=== PATIENT | male | born 1955 | race Caucasian/White ===

== ENCOUNTER → 2017-04-26 08:32 | Outpatient (CLI) | payer OTHER, SELFPAY ==
[2017-04-26 10:56] LABS: AST(SGOT) 21 U/L (15-37); Alanine Aminotransfer ALT/SGPT 35 U/L (12-78); Albumin, Serum 3.9 g/dL (3.4-5.0); Alkaline Phosphatase 102 U/L (45-117); Bilirubin, Direct 0.22 mg/dL (0.00-0.30); Cholesterol 132 mg/dL (200); Globulin 3.1 g/dL (2.2-4.2); High Density Lipoprotein 52 mg/dL; Triglycerides 64 mg/dL; Very Low Density Lipoprotein 13 mg/dL (5-40)
== END ==
PROVIDERS: Family Provider Family Medicine; PCP Family Medicine; Visit Provider Internal Medicine Cardiovascular Disease
DX: E78.5 Hyperlipidemia, unspecified (principal)
CPT/HCPCS: 36415; 80061; 80076

== ENCOUNTER → 2018-03-28 09:00 | Outpatient (CLI) | payer OTHER, SELFPAY ==
[2018-02-03 16:29] VITALS: BMI 24.7
[2018-03-28 12:26] LABS: AST(SGOT) 24 U/L (15-37); Alanine Aminotransfer ALT/SGPT 52 U/L (16-61); Albumin, Serum 3.8 g/dL (3.2-5.0); Alkaline Phosphatase 84 U/L (45-117); Bilirubin, Direct 0.11 mg/dL (0.00-0.30); Cholesterol 156 mg/dL (200); Globulin 2.9 g/dL (2.2-4.2); High Density Lipoprotein 47 mg/dL; Protein, Total 6.7 g/dL (6.4-8.2); Triglycerides 93 mg/dL; Very Low Density Lipoprotein 19 mg/dL (5-40)
== END ==
PROVIDERS: Family Provider Family Medicine; PCP Family Medicine; Visit Provider Internal Medicine Cardiovascular Disease
DX: E78.5 Hyperlipidemia, unspecified (principal)
CPT/HCPCS: 36415; 80061; 80076

== ENCOUNTER → 2018-12-22 | Outpatient (CLI) | payer OTHER, SELFPAY ==
[2018-08-04 15:53] VITALS: BMI 25.7
[2018-12-22 12:49] LABS: AST(SGOT) 18 U/L (15-37); Alanine Aminotransfer ALT/SGPT 37 U/L (16-61); Albumin, Serum 3.6 g/dL (3.2-5.0); Alkaline Phosphatase 88 U/L (45-117); Bilirubin, Direct 0.13 mg/dL (0.00-0.30); Cholesterol 146 mg/dL (200); Globulin 3.1 g/dL (2.2-4.2); High Density Lipoprotein 48 mg/dL; Protein, Total 6.7 g/dL (6.4-8.2); Triglycerides 139 mg/dL; Very Low Density Lipoprotein 28 mg/dL (5-40)
== END | disposition home or self-care (01) ==
LOC: BFHLAB 08:36
PROVIDERS: Family Provider Family Medicine; PCP Family Medicine; Visit Provider Physician Assistant Medical
DX: E78.5 Hyperlipidemia, unspecified (principal); I10 Essential (primary) hypertension; I25.10 Atherosclerotic heart disease of native coronary artery without angina pectoris
CPT/HCPCS: 36415; 80061; 80076

== ENCOUNTER → 2019-08-05 | Outpatient (CLI) | payer OTHER, SELFPAY ==
[2019-02-09 15:47] VITALS: BMI 25.9
[2019-08-05 08:05] LABS: AST(SGOT) 26 U/L (15-37); Alanine Aminotransfer ALT/SGPT 50 U/L (16-61); Albumin, Serum 3.9 g/dL (3.2-5.0); Alkaline Phosphatase 85 U/L (45-117); Bilirubin, Direct 0.17 mg/dL (0.00-0.30); Cholesterol 151 mg/dL (200); Globulin 3.1 g/dL (2.2-4.2); High Density Lipoprotein 47 mg/dL; Triglycerides 120 mg/dL; Very Low Density Lipoprotein 24 mg/dL (5-40)
[2019-08-05 08:10] LABS: T4 Free Direct 0.81 ng/dL (0.76-1.46); Thyroid Stim Hormone (TSH) 2.72 uIU/mL (0.358-3.74)
== END | disposition home or self-care (01) ==
LOC: LAB 07:04
PROVIDERS: Physician Assistant Medical; PCP Family Medicine; Referring Provider Nurse Practitioner Family; Visit Provider Nurse Practitioner Family
DX: E78.5 Hyperlipidemia, unspecified (principal)
CPT/HCPCS: 36415; 80061; 80076; 84439; 84443

== ENCOUNTER → 2021-01-30 06:03 | Outpatient (CLI) | payer OTHER, SELFPAY ==
[2021-01-30 09:37] LABS: AST(SGOT) 21 U/L (15-37); Alanine Aminotransfer ALT/SGPT 43 U/L (16-61); Albumin, Serum 3.6 g/dL (3.2-5.0); Alkaline Phosphatase 85 U/L (45-117); Bilirubin, Direct 0.14 mg/dL (0.00-0.30); Cholesterol 143 mg/dL (200); Globulin 3.3 g/dL (2.2-4.2); High Density Lipoprotein 45 mg/dL; Protein, Total 6.9 g/dL (6.4-8.2); Triglycerides 129 mg/dL; Very Low Density Lipoprotein 26 mg/dL (5-40)
== END ==
PROVIDERS: PCP Family Medicine; Referring Provider Physician Assistant Medical; Visit Provider Physician Assistant Medical
DX: E78.5 Hyperlipidemia, unspecified (principal); I25.10 Atherosclerotic heart disease of native coronary artery without angina pectoris
CPT/HCPCS: 36415; 80061; 80076

== ENCOUNTER → 2021-03-16 | Outpatient (CLI) | payer OTHER, SELFPAY | END | disposition home or self-care (01) | PROVIDERS: PCP Family Medicine; Visit Provider Family Medicine | DX: Z20.828 Contact with and (suspected) exposure to other viral communicable diseases (principal) | CPT/HCPCS: 87633; 87635; U0005; U0003 ==

== ENCOUNTER → 2022-04-10 | Outpatient (CLI) | payer MEDICARE, SELFPAY ==
--- NOTE | 2022-04-10 07:24 | ECHOD_ITS ---
Reason For Study: CAD/ASHD Procedure This was a 2D Doppler, Color Flow transthoracic echocardiogram. The study was technically difficult. Exam performed in department. Left Ventricle Normal LV size. Left ventricular systolic function is normal. The estimated ejection fraction is 60 %. Post operative septal motion. No evidence for diastolic dysfunction. Right Ventricle Normal RV size. Normal systolic function. Atria Normal left atrium. Normal right atrium. No doppler evidence for ASD. Mitral Valve There is no mitral annular calcification. Normal mitral valve. Trivial mitral valve insufficiency. Tricuspid Valve Normal tricuspid valve. Trivial tricuspid valve insufficiency. Unable to estimate RV systolic pressure due to insufficient tricuspid regurgitant envelope. Aortic Valve Trisinus/trileaflet aortic valve. Mild focal aortic valve calcification. Pulmonic Valve The pulmonic valve is not well visualized. Mild (1+) pulmonic valve insufficiency. Great Vessels Normal sized aortic root. Pericardium/Pleural No pericardial effusion. MMode/2D Measurements & Calculations LVIDd: 5.0 cm IVSd: 0.99 cm Ao root diam: 3.0 cm LVIDs: 3.6 cm LVPWd: 1.2 cm RVDd: 3.1 cm FS: 27.7 % LAV(MOD-bp): 43.1 ml LVAd ap4: 30.3 cm2 LVAd ap2: 26.1 cm2 LAV(MOD-bp) Indexed: 18.9 ml/m2 LVLd ap4: 7.8 cm LVLd ap2: 8.2 cm LAV(MOD-sp2): 44.4 ml EDV(MOD-sp4): 96.1 ml EDV(MOD-sp2): 71.2 ml LAV(MOD-sp4): 38.1 ml EDV(sp4-el): 99.2 ml EDV(sp2-el): 70.9 ml LVAs ap4: 19.9 cm2 LVAs ap2: 14.8 cm2 LVLs ap4: 7.0 cm LVLs ap2: 6.4 cm ESV(MOD-sp4): 47.3 ml ESV(MOD-sp2): 30.6 ml ESV(sp4-el): 48.3 ml ESV(sp2-el): 28.9 ml EF(MOD-sp4): 50.8 % EF(MOD-sp2): 57.0 % EF(sp4-el): 51.3 % SV(MOD-sp4): 48.8 ml SV(MOD-sp2): 40.6 ml SV(sp4-el): 50.9 ml LA dimension(2D): 4.1 cm LA A4 area: 14.5 cm2 RA A4 area: 10.8 cm2 Time Measurements MV dec time: 0.23 sec Doppler Measurements & Calculations MV E max saurabh: 55.7 cm/sec Lat Peak E' Saurabh: 11.0 cm/sec Med Peak E' Saurabh: 9.4 cm/sec MV A max saurabh: 60.1 cm/sec E/E' lat: 5.1 E/E' med: 6.0 MV E/A: 0.93 MV dec slope: 253.9 cm/sec2 Ao V2 max: 149.0 cm/sec LV V1 max: 105.3 cm/sec Ao max P.9 mmHg LV V1 max P.4 mmHg Ao V2 mean: 101.1 cm/sec LV V1 mean P.4 mmHg Ao mean P.7 mmHg LV V1 mean: 71.7 cm/sec Ao V2 VTI: 29.6 cm LV V1 VTI: 20.8 cm AV (velocity ratio): 0.70 PA V2 max: 87.6 cm/sec PI end-d saurabh: 91.3 cm/sec ECHO/Echo Complete Interpretation Summary The study was technically difficult. Left ventricular systolic function is normal. The estimated ejection fraction is 60 %. Post operative septal motion. Trivial mitral valve insufficiency. Trivial tricuspid valve insufficiency. Mild focal aortic valve calcification. Mild (1+) pulmonic valve insufficiency. Unable to estimate RV systolic pressure due to insufficient tricuspid regurgita nt envelope. No evidence for diastolic dysfunction. Ordering Physician: Eagle Arellano Referring Physician: Nhan Yang Performed By: Meche Benitez, RDCS, RVT
--- NOTE | 2022-04-10 07:24 | CDU_ITS ---
Reason For Study: Bruit Rt. Velocities/BP Lt. Velocities/BP Prox CCA 96.0/20.1 cm/sec. Prox CCA 112.5/30.3 cm/sec. Mid CCA 86.4/22.6 cm/sec. Mid CCA 90.6/26.7 cm/sec. Dist CCA 71.0/17.1 cm/sec. Dist CCA 88.6/27.0 cm/sec. Prox ICA 90.8/25.9 cm/sec. Prox ICA 89.5/28.9 cm/sec. Mid ICA 118.0/28.5 cm/sec. Mid ICA 72.0/22.6 cm/sec. Dist ICA 79.8/29.2 cm/sec. Dist ICA 69.8/27.0 cm/sec. Rt. ICA/CCA = 1.4. Lt. ICA/CCA = 1.0. Prox ECA 166.0/18.9 cm/sec. Prox ECA 105.0/24.2 cm/sec. Rt. Vert. 30.0/10.4 cm/sec. Lt. Vert. 44.1/11.9 cm/sec. Right Extracranial There is intimal thickening but no significant atherosclerotic plaque noted in the right common carotid artery. There is heterogeneous, irregular atherosclerotic plaque noted in the right internal carotid artery. There is heterogeneous, irregular atherosclerotic plaque noted in the right external carotid artery. Antegrade flow is noted in the right vertebral artery. Left Extracranial There is intimal thickening but no significant atherosclerotic plaque noted in the left common carotid artery. There is heterogeneous, irregular atherosclerotic plaque noted in the left internal carotid artery. There is heterogeneous, irregular atherosclerotic plaque noted in the left external carotid artery. Antegrade flow is noted in the left vertebral artery. Procedure Carotid Duplex 29792. This is a Carotid Duplex examination using B-mode, color flow and specral Doppler. The exam was diagnostic. Exam performed in department. VL/Carotid Duplex Ultrasound Interpretation Summary Mild (<50%) stenosis right extracranial internal carotid. Mild (<50%) stenosis left extracranial internal carotid. Patent and antegrade vertebrals bilaterally. Ordering Physician: Eagle Arellano Referring Physician: Nhan Yang Performed By: Matthew Gandhi RVT
--- NOTE | 2022-04-10 08:56 | STRESSREP_ITS ---
Stress Test Report Date: 04-10-2022 Procedure: Exercise tolerance test/imaging study Indications: Shortness of breath/dyspnea; CAD; CABG Consent: Per the patient Procedure: The patient exercised on a Jerman protocol for 7 minutes completing Stage II and 1 minute of Stage III achieving a peak heart rate of 157 bpm (100% predicted maximal heart rate) with resting blood pressure of 136/82 mmHg and a peak blood pressure 198/68 mmHg and a peak MET capacity of 9 METs. The baseline ECG demonstrated normal sinus rhythm; poor R wave progression. The peak exercise ECG demonstrated no obvious ECG changes. There was a rare PVC during exercise. The functional capacity was considered good. There was no complaint of chest discomfort during exercise or recovery. The examination was discontinued secondary to dyspnea. Impression: 1. Technically adequate (percent predicted maximal heart rate greater than 85%) exercise tolerance test 2. Peak exercise ECG with no obvious ECG change 3. There was a rare PVC during exercise 4. Nuclear images pending Myocardial perfusion imaging study: Technique: The patient was injected with 11.9 mCi of technetium 99m Cardiolite and subsequently rest SPECT Cardiolite nuclear imaging was obtained in the horizontal long, vertical long, and short axis views. The patient exercised on a Jerman protocol for 7 minutes completing Stage II and 1 minute of Stage III achieving a peak heart rate of 157 bpm (100% predicted maximal heart rate) with resting blood pressure of 136/82 mmHg and a peak blood pressure 198/68 mmHg and a peak MET capacity of 9 METs. The patient was injected with 33.3 mCi of technetium 99m Cardiolite and subsequently stress SPECT Cardiolite nuclear imaging was obtained in the horizontal long, vertical long, and short axis views. A gated Cardiolite study at peak stress was obtained. Interpretation: Rest and stress SPECT Cardiolite nuclear imaging status post realignment, normalization, and attenuation correction, demonstrates the appearance of relative uniform tracer uptake and myocardial perfusion appearing within normal limits. There is end systolic thickening and brightening. The gated Cardiolite study demonstrates myocardial thickening and inward wall motion. The reported LVEF is 61%. Impression: 1. Rest and stress SPECT Cardiolite nuclear imaging demonstrate relative uni form tracer uptake and myocardial perfusion appearing within normal limits. 2. The gated Cardiolite study reports an LVEF of 61%. This note was generated with [email or web address] software. It may contain incorrect words, spelling, and punctuation that were not noted in checking the note before signing.
== END | disposition home or self-care (01) ==
PROVIDERS: PCP Family Medicine; Visit Provider Nurse Practitioner Gerontology
DX: I38 Endocarditis, valve unspecified (principal); I10 Essential (primary) hypertension; I25.10 Atherosclerotic heart disease of native coronary artery without angina pectoris; E78.5 Hyperlipidemia, unspecified; R09.89 Other specified symptoms and signs involving the circulatory and respiratory systems; Z95.1 Presence of aortocoronary bypass graft
CPT/HCPCS: 78452; 93017; 93306; 93880; A9500; A4216

== ENCOUNTER → 2022-04-16 | Outpatient (CLI) | payer MEDICARE, SELFPAY ==
[2022-04-16 08:46] LABS: AST(SGOT) 25 U/L (15-37); Alanine Aminotransfer ALT/SGPT 50 U/L (16-61); Albumin, Serum 3.7 g/dL (3.2-5.0); Alkaline Phosphatase 92 U/L (45-117); Bilirubin, Direct 0.12 mg/dL (0.00-0.30); Cholesterol 153 mg/dL (200); Globulin 3.4 g/dL (2.2-4.2); High Density Lipoprotein 44 mg/dL; Protein, Total 7.1 g/dL (6.4-8.2); Triglycerides 212 mg/dL; Very Low Density Lipoprotein 42 mg/dL (5-40)
== END | disposition home or self-care (01) ==
LOC: LAB 07:48
PROVIDERS: PCP Family Medicine; Referring Provider Internal Medicine Cardiovascular Disease; Visit Provider Internal Medicine Cardiovascular Disease
DX: I38 Endocarditis, valve unspecified (principal); I10 Essential (primary) hypertension; I25.10 Atherosclerotic heart disease of native coronary artery without angina pectoris; E78.5 Hyperlipidemia, unspecified; R09.89 Other specified symptoms and signs involving the circulatory and respiratory systems; Z95.1 Presence of aortocoronary bypass graft
CPT/HCPCS: 36415; 80061; 80076

== ENCOUNTER → 2022-10-13 | Outpatient (CLI) | payer MEDICARE, SELFPAY ==
[2022-10-13 09:02] LABS: AST(SGOT) 24 U/L (15-37); Alanine Aminotransfer ALT/SGPT 40 U/L (16-61); Albumin, Serum 3.6 g/dL (3.2-5.0); Alkaline Phosphatase 80 U/L (45-117); Bilirubin, Direct 0.19 mg/dL (0.00-0.30); Cholesterol 146 mg/dL (200); Globulin 3.1 g/dL (2.2-4.2); High Density Lipoprotein 44 mg/dL; Protein, Total 6.7 g/dL (6.4-8.2); Triglycerides 105 mg/dL; Very Low Density Lipoprotein 21 mg/dL (5-40)
== END | disposition home or self-care (01) ==
LOC: LAB 07:37
PROVIDERS: PCP Family Medicine; Visit Provider Nurse Practitioner Family
DX: E78.00 Pure hypercholesterolemia, unspecified (principal)
CPT/HCPCS: 36415; 80061; 80076

== ENCOUNTER → 2023-06-18 | Outpatient (CLI) | payer MEDICARE, SELFPAY ==
[2023-06-18 09:22] LABS: Absolute Lymphocyte Count 1.98 X10^3/uL (0.83-4.51); Basophil# 0.05 X10^3/uL; Basophil% 0.9 % (0-1); Eosinophil# 0.17 X10^3/uL; Eosinophils% 2.9 % (0-5); Hemoglobin 14.4 g/dL (13.0-16.5); Lymphocyte # 1.98 X10^3/ul (0.83-4.51); Lymphocyte % 34.3 % (19-41); Mean Corp Hgb Conc 33.5 g/dL (32-36); Mean Corpuscular Hgb 30.6 pg (27.0-32.0); Mean Corpuscular Volume 91.5 fL (80-94); Mean Platelet Vol. 9.5 fl (6.2-12.0); Monocyte# 0.57 X10^3/uL; Monocyte% 9.9 % (0-10); NRBC Flagged by Analyzer 0 % (0-5); Neutrophil % 51.8 % (47-70); Platelet Count 259 K/mm3 (150-450); RBC Distribution Width CV 12.5 % (11.6-14.6); RBC Distribution Width SD 42.1 fl (35.1-43.9); White Blood Count 5.8 K/mm3 (4.4-11.0)
[2023-06-18 09:49] LABS: Anion Gap 5 (5-15); BUN 19 mg/dL (7-18); BUN/Creat Ratio 16.7 RATIO (10-20); Calcium,Total 8.5 mg/dL (8.5-10.1); Chloride 111 mmol/L (98-107); Creatinine, Serum 1.14 mg/dL (0.70-1.30); EST Glomerular Filtration Rate 68 mL/min (>60); Est Glom Filt Rate - Afr Amer 83 mL/min (>60); Glucose 90 mg/dL (74-106); PSA,Total - Annual Screen 0.68 ng/mL (0.00-4.00); Sodium Level 142 mmol/L (136-145)
== END | disposition home or self-care (01) ==
PROVIDERS: PCP Family Medicine; Referring Provider Family Medicine; Visit Provider Family Medicine
DX: Z12.5 Encounter for screening for malignant neoplasm of prostate (principal); I25.10 Atherosclerotic heart disease of native coronary artery without angina pectoris; I10 Essential (primary) hypertension; R53.83 Other fatigue
CPT/HCPCS: 36415; 80048; 84153; 84403; 85025; G0103

== ENCOUNTER → 2023-12-26 | Outpatient (CLI) | payer MEDICARE, SELFPAY ==
[2023-12-26 08:49] LABS: Absolute Neutrophil Count 2.6 X10^3/uL (2.0-7.7); Basophil# 0.04 X10^3/uL; Basophil% 0.7 % (0-1); Eosinophil# 0.22 X10^3/uL; Eosinophils% 3.9 % (0-5); Hemoglobin 14.5 g/dL (13.0-16.5); Lymphocyte % 38.7 % (19-41); Mean Corp Hgb Conc 34.5 g/dL (32-36); Mean Corpuscular Hgb 31.5 pg (27.0-32.0); Mean Corpuscular Volume 91.1 fL (80-94); Mean Platelet Vol. 9.3 fl (6.2-12.0); Monocyte# 0.65 X10^3/uL; Monocyte% 11.4 % (0-10); NRBC Flagged by Analyzer 0 % (0-5); Neutrophil # 2.56 X10^3/uL (2.7-7.7); Neutrophil % 45.1 % (47-70); Platelet Count 226 K/mm3 (150-450); RBC Distribution Width CV 12.6 % (11.6-14.6); RBC Distribution Width SD 41.5 fl (35.1-43.9); Red Blood Count 4.61 M/mm3 (4.6-6.2); White Blood Count 5.7 K/mm3 (4.4-11.0)
[2023-12-26 09:27] LABS: ALB/GLOB Ratio 1.2 RATIO (0.9-2.4); AST(SGOT) 26 U/L (15-37); Alanine Aminotransfer ALT/SGPT 37 U/L (16-61); Albumin, Serum 3.6 g/dL (3.2-5.0); Alkaline Phosphatase 90 U/L (45-117); Anion Gap 5 (5-15); BUN 17 mg/dL (7-18); BUN/Creat Ratio 15.7 RATIO (10-20); Calcium,Total 8.9 mg/dL (8.5-10.1); Chloride 109 mmol/L (98-107); Cholesterol 142 mg/dL (200); Creatinine, Serum 1.08 mg/dL (0.70-1.30); EST Glomerular Filtration Rate 73 mL/min (>60); Est Glom Filt Rate - Afr Amer 88 mL/min (>60); Globulin 2.9 g/dL (2.2-4.2); Glucose 86 mg/dL (74-106); High Density Lipoprotein 39 mg/dL; Protein, Total 6.5 g/dL (6.4-8.2); Sodium Level 141 mmol/L (136-145); Triglycerides 220 mg/dL; Very Low Density Lipoprotein 44 mg/dL (5-40)
== END | disposition home or self-care (01) ==
LOC: LAB 08:06
PROVIDERS: PCP Family Medicine; Referring Provider Nurse Practitioner Family; Visit Provider Nurse Practitioner Family
DX: I25.10 Atherosclerotic heart disease of native coronary artery without angina pectoris (principal); E78.5 Hyperlipidemia, unspecified; I10 Essential (primary) hypertension; Z95.1 Presence of aortocoronary bypass graft
CPT/HCPCS: 36415; 80053; 80061; 85025

== ENCOUNTER → 2024-09-01 | Outpatient (CLI) | payer MEDICARE, SELFPAY ==
[2024-09-01 11:02] LABS: AST(SGOT) 28 U/L (<=37); Alanine Aminotransfer ALT/SGPT 32 U/L (<=46); Albumin, Serum 4.2 g/dL (3.4-4.8); Alkaline Phosphatase 92 U/L (40-129); Bilirubin, Direct 0.19 mg/dL (0.00-0.30); Cholesterol 140 mg/dL (<=200); Globulin 2.3 g/dL (2.2-4.2); High Density Lipoprotein 40 mg/dL; Low Density Lipoprotein Calc. 78 mg/dL; Protein, Total 6.5 g/dL (5.9-8.4); Triglycerides 113 mg/dL; Very Low Density Lipoprotein 23 mg/dL (5-40); cholesterol:hdl ratio screen 3.54
== END | disposition home or self-care (01) ==
PROVIDERS: PCP Family Medicine; Referring Provider Nurse Practitioner Family; Visit Provider Nurse Practitioner Family
DX: E78.00 Pure hypercholesterolemia, unspecified (principal)
CPT/HCPCS: 36415; 80061; 80076

== ENCOUNTER → 2024-12-29 | Outpatient (CLI) | payer MEDICARE, SELFPAY ==
[2024-12-29 09:53] LABS: Hematocrit 43.3 % (40-54); Hemoglobin 14.8 g/dL (13.0-16.5); Immature Granulocytes Count 0.010 X10^3/uL (0.0-0.0); Mean Corp Hgb Conc 34.2 g/dL (32-36); Mean Corpuscular Volume 92.5 fL (80-94); Mean Platelet Vol. 9.8 fl (6.2-12.0); NRBC Flagged by Analyzer 0 % (0-5); Platelet Count 268 K/mm3 (150-450); RBC Distribution Width CV 12.2 % (11.6-14.6); RBC Distribution Width SD 42.0 fl (35.1-43.9); Red Blood Count 4.68 M/mm3 (4.6-6.2); White Blood Count 6.1 K/mm3 (4.4-11.0)
[2024-12-29 10:12] LABS: Anion Gap 11 (5-15); BUN 22 mg/dL (4-19); BUN/Creat Ratio 19.7 RATIO (10-20); Calcium,Total 9.3 mg/dL (7.6-11.0); Carbon Dioxide 22.5 mmol/L (21.0-32.0); Chloride 107 mmol/L (98-108); Glucose 81 mg/dL (70-99); PSA,Total - Annual Screen 0.71 ng/mL (0.02-4.00); Potassium 4.0 mmol/L (3.3-5.1)
== END | disposition home or self-care (01) ==
LOC: LAB 08:30
PROVIDERS: PCP Family Medicine; Referring Provider Family Medicine; Visit Provider Family Medicine
DX: Z12.5 Encounter for screening for malignant neoplasm of prostate (principal); I10 Essential (primary) hypertension; I25.10 Atherosclerotic heart disease of native coronary artery without angina pectoris
CPT/HCPCS: 36415; 80048; 84153; 85025; G0103

== ENCOUNTER → 2025-03-24 | Outpatient (CLI) | payer MEDICARE, SELFPAY ==
--- OUTSIDE RECORDS SUMMARY | 2025-03-24 08:14 | XMS RPT_ITS | CCD ---
Author Organization [facility] Care Team Providers Care Sports Bookmaker Name Role Phone Rojas Burnette MD Unavailable Dr. Nhan Yang Referring Provider Dr. Eagle Arellano Attending Provider Valdez CREPE SOLE WIRE BRUSHER, CREPE SOLE WIRE BRUSHER-C Lulú Other Provider Dr. Nhan Yang Primary Care Provider Dr. Vicente Yousif Attending Provider Dwight [employer] W[employer] BRUSHER, CREPE SOLE WIRE BRUSHER-C Dread Patel Attending Provider Dr. Nhan Yang Primary Care Provider Dr. Nhan Yang Referring Provider Dr. Nhan Yang DO Primary Care Provider Dwight CREPE SO[employer] WIRE BRUSHER-CDread Attending Provider Dwight CREPE SOLE WIRE BRUSHER-CDread Referring Provider Dr. Nhan Yang DO Referring Provider Dr. Kyle Altamirano MD Attending Provider Dr. Nhan Yang DO Primary Care Physician Dr. Nhan Yang DO Attending Physician Dr. Nhan Yang DO Referring Provider Dwight [employer]PE [employer] W[employer] BRUSHER, Dread Patel Attending Unavailable Nhan Yang Primary Care Unavailable Nhan Yang Referring Unavailable Nhan Yang Primary Care Unavailable Dwight CREPE SO[employer] WIRE BRUSHER, Dread Patel Attending Unavailable Dwight CREPE SOLE W[employer] BRUSHER, Dread Patel Referring Unavailable Nhan Yang Primary Care Unavailable Nhan Yang Attending Unavailable Nhan Yang Referring Unavailable Nhan Yang Primary Care Unavailable Kyle Altamirano Attending Unavailable Nhan Yang Referring Unavailable Dwight [employer]PE SO[employer] W[employer] BRUSHER, Dread Patel Attending Unavailable Nhan Yang Primary Care Unavailable Nhan Yang Referring Unavailable Medications Current Medications Medication Drug Class(es) Dates Sig (Normalized) Sig (Original) amLODIPine 5 mg oral tablet (20 sources) Dihydropyridine Calcium Channel Geeta Start: 10-12-2016 End: 09-08-2024 take 1 tablet by mouth once daily aspirin 81 mg delayed release oral tablet (20 sources) Nonsteroidal Anti-inflammatory Drug Start: 05-01-2017 take 1 tablet by mouth once daily Start: 04-30-2017 End: 05-01-2017 take 1 tablet by mouth once daily Aspirin 325 mg tablet Discontinued 325 mg PO daily April 30, 2017 1:00am May 01, 2017 5:39pm Start: 01-08-2017 End: 04-30-2017 take 1 tablet by mouth once daily Aspirin 81 MG tablet,chewable Discontinued 81 mg PO DAILY@0800 0 January 08, 2017 12:00am April 30, 2017 7:34pm Start: 10-12-2016 End: 01-08-2017 take 1 tablet by mouth once daily Aspirin 325 MG tablet Discontinued 325 mg PO DAILY@0800 October 30, 2016 12:00am January 08, 2017 8:14am Start: 11-18-2014 End: 10-12-2016 take 1 tablet by mouth once daily ASPIR-81 81 MG TBEC One tablet by mouth daily for cardiovascular prevention ASPIRIN [id number] Dread Quintanilla NP Start: 11-18-2014 take 1 tablet by beulah th once daily ASPIR-81 81 MG TBEC One tablet by mouth daily for cardiovascular prevention ASPIRIN [id number] Nhan Yang DO atorvastatin 80 mg oral tablet (20 sources) HMG-CoA Reductase Inhibitor Start: 11-18-2014 End: 12-14-2024 take 1 tablet by mouth at bedtime metoprolol tartrate 25 mg oral tablet (20 sources) beta-Adrenergic Geeta Start: 08-31-2016 End: 12-14-2024 take 1 tablet by mouth twice daily Multivitamin tablet (3 sources) Start: 09-03-2024 Start: 09-03-2024 Multivitamin t ablet Active 1 {tbl} PO EVERY MORNING September 03, 2024 12:00am Multivitamin With Iron (3 sources) Start: 01-06-2017 Multivitamin W ith Iron Active 1 EACH PO DAILY January 06, 2017 12:00am Start: 01-06-2017 Multivitamin W ith Iron Active 1 EACH PO DAILY January 05, 2017 11:00pm Completed/Discontinued Medications Medication Drug Class(es) Dates Sig (Normalized) Sig (Original) acetaminophen 325 mg / HYDROcodone bitartrate 5 mg oral tablet (1 source) Opioid Agonist Start: 10-12-2016 NORCO 5-325 MG TABS HYDROCODONE-ACETAMI NOPHEN [id number] Dread Amanda Dwight [employer] BRUSHER acetaminophen 325 mg / oxyCODONE hydrochloride 5 mg oral tablet (6 sources) Opioid Agonist Start: 01-08-2017 End: 04-30-2017 Oxycodone-Acetamino phen 1 TABLET tablet Discontinued 1 - 2 {tbl} PO EVERY 4 HOURS NEEDED as needed for Pain January 08, 2017 12:00am April 30, 2017 7:36pm Start: 01-08-2017 End: 04-30-2017 take 1 tablet by mouth every four hours as needed Oxycodone-Acetaminophen Discontinued 1 - 2 TABLET PO EVERY 4 HOURS NEEDED January 08, 2017 12:00am April 30, 2017 7:36pm ascorbic acid 1000 mg oral tablet (7 sources) Start: 04-30-2017 End: 05-01-2017 take 1 g by mouth once daily Ascorbic Acid (Vitamin C) 1,000 mg tablet Discontinued 1 g PO daily April 30, 2017 1:00am May 01, 2017 5:40pm Start: 04-30-2017 End: 05-01-2017 take 1 g by mouth once daily Ascorbic Acid (Vitamin C) Discontinued 1 GM PO daily April 30, 2017 1:00am May 01, 2017 5:40pm Start: 05-13-2014 VITAMIN C 1000 MG TABS 1 tab per day ASCORBIC ACID [id number] Nhan Yang DO azithromycin 250 mg oral tablet (13 sources) Macrolide Antimicrobial Start: 01-07-2024 End: 09-03-2024 Azithromycin (Zithromax Z-Nixon) 250 mg tablet Discontinued 0 PO .COMPLEX 6 0 April 26, 2024 1:00am September 03, 2024 3:30pm For 250 mg dose pack: take 500 mg today (day 1), then 250 mg for 4 days (days 2-5) PO Start: 04-18-2021 End: 09-04-2021 take 2-5 tablets by mouth once daily Azithromycin 250 mg tablet Discontinued 0 PO .COMPLEX 6 0 April 18, 2021 1:00am September 04, 2021 3:45pm take 500 mg today (day 1), then 250 mg for 4 days (days 2-5) PO Start: 10-18-2014 End: 10-23-2014 take 2 tablets by mouth once, then take 1 tablet by mouth once daily, then take 2-5 tablets by mouth AZITHROMYCIN 250 MG TABS 2 PO on day 1 then 1 PO daily on days 2-5 AZITHROMYCIN [id number] Nhan Ingrid ConstantinoCelia clopidogrel 75 mg oral tablet (7 sources) P2Y12 Platelet Inhibitor Start: 08-31-2016 End: 01-08-2017 take 1 tablet by mouth once daily Clopidogrel 75 MG tablet Discontinued 75 mg PO DAILY September 11, 2016 12:00am January 08, 2017 8:14am ferrous sulfate 325 mg oral tablet (7 sources) Start: 04-30-2017 End: 05-01-2017 take 1 tablet by mouth once daily Ferrous Sulfate 325 mg (65 mg iron) tablet Discontinued 325 mg PO daily April 30, 2017 1:00am May 01, 2017 5:40pm Start: 10-12-2016 take 1 tablet by beulah th once daily FERROUS SULFATE 325 (65 Fe) MG TABS One tablet by mouth daily FERROUS SULFATE [id number] Dread Quintanilla NP furosemide 40 mg oral tablet (7 sources) Loop Diuretic Start: 04-30-2017 End: 05-01-2017 take 1 tablet by mouth once daily Furosemide 40 mg tablet Discontinued 40 mg PO daily April 30, 2017 1:00am May 01, 2017 5:40pm Start: 10-12-2016 take 1 tablet by beulah th once daily FUROSEMIDE 40 MG TABS One tablet by mouth daily FUROSEMIDE [id number] Dread Quintanilla [employer] BRUSHER 24 hr isosorbide mononitrate 30 mg extended release oral tablet (7 sources) Start: 04-30-2017 End: 05-01-2017 take 1 tablet by mouth once daily in the morning, then take 1 tablet by mouth every twenty-four hours Isosorbide Mononitrate 30 mg tablet extended release 24 hr Discontinued 30 mg PO EVERY MORNING April 30, 2017 1:00am May 01, 2017 5:40pm Start: 08-31-2016 take 1 tablet by beulah th once daily ISOSORBIDE MONONITRATE ER 30 MG [id number] One tablet by mouth daily ISOSORBIDE MONONITRATE [id number] Eagle Arellano MD lisinopril 10 mg oral tablet (3 sources) Angiotensin Converting Enzyme Inhibitor Start: 11-18-2014 take 1 tablet by mouth once daily for hypertension LISINOPRIL 10 MG TABS One tablet by mouth daily for high blood pressure LISINOPRIL [id number] Nhan Ingrid Celia DO Start: 11-18-2014 End: 10-12-2016 take 1 tablet by mouth once daily LISINOPRIL 20 MG TABS One tablet by mouth daily LISINOPRIL [id number] Nhan Ingrid Celia DO MULTIPLE VITAMIN (1 source) Start: 05-13-2014 MULTIVITAMINS CAPS One a day MULTIPLE VITAMIN [id number] Nhan Ingrid Celia DO Multivitamin With Iron 1 EACH tablet (3 sources) Start: 01-06-2017 End: 09-03-2024 take 1 tablet by mouth once daily Multivitamin With Iron 1 EACH tablet Discontinued 1 NMA PO DAILY January 06, 2017 12:00am September 03, 2024 3:30pm oseltamivir 75 mg oral capsule (3 sources) Neuraminidase Inhibitor Start: 04-26-2024 End: 05-01-2024 take 1 capsule by mouth every twelve hours Oseltamivir (Tamiflu) 75 mg capsule Discontinued 75 mg PO Q12H 10 5 0 April 26, 2024 1:00am April 30, 2024 1:00am May 01, 2024 1:19am potassium chloride 20 meq extended release oral tablet (7 sources) Start: 04-30-2017 End: 05-01-2017 take 1 tablet by mouth once daily Potassium Chloride 20 mEq tablet extended release Discontinued 20 meq PO daily April 30, 2017 1:00am May 01, 2017 5:40pm Start: 10-12-2016 take 1 tablet by beulah th once daily POTASSIUM CHLORIDE 20 MEQ PACK One tablet by mouth daily POTASSIUM CHLORIDE [id number] Dread H Roof [employer] W[employer] BRUSHER simvastatin 20 mg oral tablet (1 source) HMG-CoA Reductase Inhibitor Start: 11-18-2014 take 1 tablet by mouth once daily for hyperlipidemia SIMVASTATIN 20 MG TABS One tablet by mouth daily at night for high cholesterol SIMVASTATIN [id number] Nhan Yang DO vitamin e 180 mg oral capsule (7 sources) Start: 04-30-2017 End: 05-01-2017 Vitamin E (Dl, Acetate) 400 unit capsule Discontinued 400 U PO daily April 30, 2017 1:00am May 01, 2017 5:40pm Start: 08-31-2016 take 1 tablet by beulah th once daily VITAMIN E 400 UNIT CAPS One tablet by mouth daily VITAMIN E [id number] Eagle Arellano MD Problems Active Problems Problem Classification Problem Date Documented Date Episodic/Chronic Biliary tract disease (7 sources) Acute cholecystitis; Translations: [Acute cholecystitis] Onset: 01-22-2017 01-22-2017 Episodic Complication of device; implant or graft (1 source) Arteriosclerosis of coronary artery bypass graft; Translations: [Atherosclerosis of coronary artery bypass graft(s) without angina pectoris] Onset: 10-12-2016 10-12-2016 Chronic Conditions associated with dizziness or vertigo (6 sources) Dizziness; Translations: [Dizziness and giddiness] 09-04-2021 Episodic Coronary atherosclerosis and other heart disease (20 sources) Angina pectoris; Translations: [Coronary arteriosclerosis] Onset: 08-31-2016 08-31-2016 Chronic Comment on above: CABG x4 BEASLEY to LAD, KALA to RCA, SVG to 1st diag, and right radial artery graft from SVG to OM 09/18/16 Disorders of lipid metabolism (11 sources) Dyslipidemia; Translations: [Hyperlipidemia] Onset: 06-17-2014 06-17-2014 Chronic Essential hypertension (18 sources) Hypertensive episode; Translations: [Hypertensive disorder] Onset: 05-13-2014 Resolved: 06-17-2014 05-13-2014 Chronic Nonspecific chest pain (6 sources) Chest pain; Translations: [Chest pain, unspecified] 08-04-2018 Episodic Other circulatory disease (6 sources) Carotid bruit; Translations: [Other specified symptoms and signs involving the circulatory and respiratory systems] 03-14-2022 Episodic Other circulatory disease (1 source) Other specified symptoms and signs involving the circulatory and respiratory systems; Translations: [Other symptoms involving cardiovascular system] 03-14-2022 Episodic Other lower respiratory disease (6 sources) Cough; Translations: [Cough] 04-18-2021 Episodic Other upper respiratory infections (13 sources) Acute sinusitis; Translations: [Acute upper respiratory infection] Onset: 10-18-2014 Resolved: 10-25-2014 10-18-2014 Episodic Belkys-; endo-; and myocarditis; cardiomyopathy (except that caused by tuberculosis or sexually transmitted disease) (7 sources) Heart valve disorder; Translations: [Endocarditis, valve unspecified] 09-04-2021 Chronic Unclassified (9 sources) Abnormal result of cardiovascular function study, unspecified; Translations: [Cardiovascular stress test abnormal] Onset: 08-31-2016 08-31-2016 Episodic Unclassified (1 source) Screening for malignant neoplasm of colon ; Translations: [Encounter for screening for malignant neoplasm of colon] Onset: 05-13-2014 05-13-2014 Unclassified (1 source) Adult health examination ; Translations: [Encounter for general adult medical examination without abnormal findings] Onset: 05-13-2014 05-13-2014 Past or Other Problems Problem Classification Problem Date Documented Da te Episodic/Chronic Coronary atherosclerosis and other heart disease (1 source) Presence of aortocoronary bypass graft; Translations: [Aortocoronary bypass status] Onset: 08-30-2016 03-14-2022 Episodic Genitourinary symptoms and ill-defined conditions (1 source) Microalbuminuria; Translations: [Proteinuria, unspecified] Onset: 06-17-2014 06-17-2014 Episodic Other circulatory disease (1 source) Non-neoplastic nevus; Translations: [Nevus, non-neoplastic] Onset: 05-13-2014 05-13-2014 Episodic Other lower respiratory disease (1 source) Snoring; Translations: [Snoring] Onset: 06-17-2014 06-17-2014 Episodic Spondylosis; intervertebral disc disorders; other back problems (1 source) Acute low back pain; Translations: [Low back pain] Onset: 03-21-2015 Resolved: 03-28-2015 03-21-2015 Episodic Unclassified (2 sources) Body mass index (BMI) 26.0-26.9, adult; Translations: [Body mass index (BMI) 26.0-26.9, adult] Onset: 08-31-2016 Resolved: 10-12-2016 08-31-2016 Episodic Results Test Name Value Interpretation Reference Range Facility Absolute lymphocyte countOrd ered By: Nhan Yang on 12-29-2024 Lymphocytes Auto (Unsp spec) [#/Vol] 1.66 10*3/uL 0.83-4.51 [facility] Absolute neutrophil countOrd ered By: Nhan Yang on 12-29-2024 Neutrophils (Bld) [#/Vol] 3.7 10*3/uL 2.0-7.7 [facility] Anion gap in Serum or Plasma Ordered By: Nhan Yang on 12-29-2024 Anion gap [Moles/Vol] 11 mmol/L 5- [facility] Automated lymphocyte count a s percentage of total leukocytesOrdered By: Nhan Yang on 12-29-2024 Lymphocytes/100 WBC Auto (Unsp spec) 27.3 % - [facility] BUN/creatinine ratioOrdered By: Nhan Yang on 12-29-2024 Urea nitrogen/Creatinine [Mass ratio] 19.7 mg/mg - [facility] Basic Metabolic Profile (BMP )on 12-29-2024 BUN/CRE 19.7 RATIO Normal - [facility] Comment on above: Performed By: #### L 500.2500, L501.9910, L100.0100 #### [facility] [address] [place], [address] Calcium [Mass/Vol] 9.3 mg/dL Normal 7.6-11.0 [facility] Comment on above: Performed By: #### L 500.2500, L501.9910, L100.0100 #### [facility] [address] [place], [address] Chloride [Moles/Vol] 107 mmol/L Normal 98-108 [facility] Comment on above: Performed By: #### L 500.2500, L501.9910, L100.0100 #### [facility] [address] [place], [address] CO2 [Moles/Vol] 22.5 mmol/L Normal 21.0-32.0 [facility] Comment on above: Performed By: #### L 500.2500, L501.9910, L100.0100 #### [facility] [address] [place], [address] Creatinine [Mass/Vol] 1.12 mg/dL Normal 0.70-1.20 [facility] Comment on above: Performed By: #### L 500.2500, L501.9910, L100.0100 #### [facility] [address] [place], [address] GAP 11 Normal 5-15 [facility] Comment on above: Performed By: #### L 500.2500, L501.9910, L100.0100 #### [facility] [address] [place], [address] GFR/1.73 sq M.predicted among non-blacks MDRD (S/P/Bld) [Vol rate/Area] 72 mL/min/{1.73_m2} Normal >60 [facility] Comment on above: Result Comment: mL/m in/1.73m2 CKD-EPI Creatinine Equation (2020) Performed By: #### L 500.2500, L501.9910, L100.0100 #### [facility] [address] [place], [address] Glucose [Mass/Vol] 81 mg/dL Normal 70-99 [facility] Comment on above: Performed By: #### L 500.2500, L501.9910, L100.0100 #### [facility] [address] [place], [address] Potassium [Moles/Vol] 4.0 mmol/L Normal 3.3-5.1 [facility] Comment on above: Performed By: #### L 500.2500, L501.9910, L100.0100 #### [facility] [address] [place], [address] Sodium [Moles/Vol] 141 mmol/L Normal 133-145 [facility] Comment on above: Performed By: #### L 500.2500, L501.9910, L100.0100 #### [facility] [address] [place], [address] Urea nitrogen [Mass/Vol] 22 mg/dL High 4-19 [facility] Comment on above: Performed By: #### L 500.2500, L501.9910, L100.0100 #### [facility] [address] [place], [address] Basophil percentageOrdered B y: Nhan Yang on 12-29-2024 Basophils/100 WBC (Bld) 0.8 % 0-1 [facility] CBC W/Diff, Automatedon 12-02-2024 Absolute Lymph 1.66 X10 3/uL Normal 0.83-4.51 [facility] Comment on above: Performed By: #### L 500.2500, L501.9910, L100.0100 #### [facility] [address] [place], [address] Absolute Neut 3.7 X10 3/uL Normal 2.0-7.7 [facility] Comment on above: Performed By: #### L 500.2500, L501.9910, L100.0100 #### [facility] [address] [place], [address] Basophils/100 WBC (Bld) 0.8 % Normal 0-1 [facility] Comment on above: Performed By: #### L 500.2500, L501.9910, L100.0100 #### [facility] [address] [place], [address] Eosinophils/100 WBC (Bld) 2.0 % Normal 0-5 [facility] Comment on above: Performed By: #### L 500.2500, L501.9910, L100.0100 #### [facility] [address] [place], [address] Erythrocyte distribution width (RBC) [Ratio] 12.2 % Normal 11.6-14.6 [facility] Comment on above: Performed By: #### L 500.2500, L501.9910, L100.0100 #### [facility] [address] [place], [address] Hematocrit (Bld) [Volume fraction] 43.3 % Normal 40-54 [facility] Comment on above: Performed By: #### L 500.2500, L501.9910, L100.0100 #### [facility] [address] [place], [address] Hemoglobin (Bld) [Mass/Vol] 14.8 g/dL Normal 13.0-16.5 [facility] Comment on above: Performed By: #### L 500.2500, L501.9910, L100.0100 #### [facility] [address] [place], [address] IG% 0.200 Normal 0.0-0.9 [facility] Comment on above: Result Comment: IG% - Immature Granulocytes (promyelocytes, myelocytes and metamyelocytes) > 1% indicates that a LEFT SHIFT is Present. Performed By: #### L 500.2500, L501.9910, L100.0100 #### [facility] [address] [place], [address] Lymphocytes/100 WBC (Bld) 27.3 % Normal 19-41 [facility] Comment on above: Performed By: #### L 500.2500, L501.9910, L100.0100 #### [facility] [address] [place], [address] MCH (RBC) [Entitic mass] 31.6 pg Normal 27.0-32.0 [facility] Comment on above: Performed By: #### L 500.2500, L501.9910, L100.0100 #### [facility] [address] [place], [address] MCHC (RBC) [Mass/Vol] 34.2 g/dL Normal 32-36 [facility] Comment on above: Performed By: #### L 500.2500, L501.9910, L100.0100 #### [facility] [address] [place], [address] MCV (RBC) [Entitic vol] 92.5 fL Normal 80-94 [facility] Comment on above: Performed By: #### L 500.2500, L501.9910, L100.0100 #### [facility] [address] [place], [address] Monocytes/100 WBC (Bld) 9.5 % Normal 0-10 [facility] Comment on above: Performed By: #### L 500.2500, L501.9910, L100.0100 #### [facility] [address] [place], [address] Neutrophils/100 WBC (Bld) 60.2 % Normal 47-70 [facility] Comment on above: Performed By: #### L 500.2500, L501.9910, L100.0100 #### [facility] [address] [place], [address] Nucleated RBC (Bld) [#/Vol] 0 10*3/uL Normal 0-5 [facility] Comment on above: Performed By: #### L 500.2500, L501.9910, L100.0100 #### [facility] [address] [place], [address] Platelet mean volume (Bld) [Entitic vol] 9.8 fL Normal 6.2-12.0 [facility] Comment on above: Performed By: #### L 500.2500, L501.9910, L100.0100 #### [facility] [address] [place], [address] Platelets (Bld) [#/Vol] 268 10*3/uL Normal 150-450 [facility] Comment on above: Performed By: #### L 500.2500, L501.9910, L100.0100 #### [facility] [address] [place], [address] RBC (Bld) [#/Vol] 4.68 10*6/uL Normal 4.6-6.2 [facility] Comment on above: Performed By: #### L 500.2500, L501.9910, L100.0100 #### [facility] [address] [place], [address] RDW SD 42.0 fl Normal 35.1-43.9 [facility] Comment on above: Performed By: #### L 500.2500, L501.9910, L100.0100 #### [facility] [address] [place], [address] WBC (Bld) [#/Vol] 6.1 10*3/uL Normal 4.4-11.0 [facility] Comment on above: Performed By: #### L 500.2500, L501.9910, L100.0100 #### [facility] [address] [place], [address] Carbon dioxide, total [Moles /volume] in Central venous bloodOrdered By: Nhan Yang on 12-29-2024 CO2 [Moles/Vol] 22.5 mmol/L 21.0-32.0 [facility] Chloride assayOrdered By: Arslan Yang on 12-29-2024 Chloride [Moles/Vol] 107 mmol/L 98-108 [facility] Eosinophil percentageOrdered By: Nhan Yang on 12-29-2024 Eosinophils/100 WBC (Bld) 2.0 % 0-5 [facility] Erythrocyte distribution wid th ratioOrdered By: Nhan Yang on 12-29-2024 Erythrocyte distribution width (RBC) [Ratio] 12.2 % 11.6-14.6 [facility] Erythrocyte distribution wid th standard deviationOrdered By: Nhan Yang on 12-29-2024 Erythrocyte distribution width (RBC) [Ratio] 42.0 fl 35.1-43.9 [facility] Glomerular filtration rate ( GFR) estimation/1.73 sq m using serum, plasma, or whole bOrdered By: Nhan Yang on 12-29-2024 GFR/1.73 sq M.predicted among non-blacks MDRD (S/P/Bld) [Vol rate/Area] 72 mL/min/{1.73_m2} >60 [facility] Comment on above: mL/min/1.73m2 CKD-EP I Creatinine Equation (2020) Hematocrit Auto (Bld) [Volum e fraction]Ordered By: Nhan Yang on 12-29-2024 Hematocrit (Bld) [Volume fraction] 43.3 % 40-54 [facility] Hemoglobin measurementOrdere d By: Nhan Yang on 12-29-2024 Hemoglobin (Bld) [Mass/Vol] 14.8 g/dL 13.0-16.5 [facility] Immature granulocytes/100 WB C Auto (Bld)Ordered By: Nhan Yang on 12-29-2024 Immature granulocytes/100 WBC (Bld) 0.200 % 0.0-0.9 [facility] Comment on above: IG% - Immature Granu locytes (promyelocytes, myelocytes and metamyelocytes) > 1% indicates that a LEFT SHIFT is Present. MCV (mean corpuscular volume ) determinationOrdered By: Nhan Yang on 12-29-2024 MCV (RBC) [Entitic vol] 92.5 fL 80-94 [facility] Mean corpuscular hemoglobin (MCH) determinationOrdered By: Nhan Yang on 12-29-2024 MCH (RBC) [Entitic mass] 31.6 pg 27.0-32.0 [facility] Mean corpuscular hemoglobin concentration (MCHC) determinationOrdered By: Nhan Yang on 12-29-2024 MCHC (RBC) [Mass/Vol] 34.2 g/dL 32-36 [facility] Mean platelet volume determi nationOrdered By: Nhan Yang on 12-29-2024 Platelet mean volume (Bld) [Entitic vol] 9.8 fL 6.2-12.0 [facility] Monocyte percentageOrdered B y: Nhan Yang on 12-29-2024 Monocytes/100 WBC (Bld) 9.5 % 0-10 [facility] Neutrophil percentageOrdered By: Nhan Yang on 12-29-2024 Neutrophils/100 WBC (Bld) 60.2 % 47-70 [facility] Nucleated red blood cell per centageOrdered By: Nhan Yang on 12-29-2024 Nucleated RBC/100 WBC (Bld) [Ratio] 0 % 0-5 [facility] PSA,Total - Annual Screenon 12-29-2024 PSA,TOT SCREEN 0.71 ng/mL Normal 0.02-4.00 [facility] Comment on above: Result Comment: This test was performed using the [employer] tPSA method. Measured values of a patient??sample can vary depending on the testing procedure used. PSA values determined on patient samples by different testing procedures cannot be used interchangeably. If there is a change in PSA assays while monitoring therapy, sequential testing should be performed to confirm baseline values. Performed By: #### L 500.2500, L501.9910, L100.0100 #### [facility] [address] [facility], [address] Platelet countOrdered By: Arslan Yang on 12-29-2024 Platelets (Bld) [#/Vol] 268 10*3/uL 150-450 [facility] Potassium measurement (mass/ volume)Ordered By: Nhan Yang on 12-29-2024 Potassium (Unsp spec) [Mass/Vol] 4.0 mmol/L 3.3-5.1 [facility] RBC Auto (Bld) [#/Vol]Ordere d By: Nhan Yang on 12-29-2024 RBC (Bld) [#/Vol] 4.68 10*6/uL 4.6-6.2 [facility] Serum creatinine measurement (mass/volume)Ordered By: Nhan Yang on 12-29-2024 Creatinine [Mass/Vol] 1.12 mg/dL 0.70-1.20 [facility] Serum glucose measurement (m ass/volume)Ordered By: Nhan Yang on 12-29-2024 Glucose [Mass/Vol] 81 mg/dL 70-99 [facility] Serum or plasma calcium sasha urement (mass/volume)Ordered By: Nhan Yang on 12-29-2024 Calcium [Mass/Vol] 9.3 mg/dL 7.6-11.0 [facility] Serum or plasma urea nitroge n measurement (mass/volume)Ordered By: Nhan Yang on 12-29-2024 Urea nitrogen [Mass/Vol] 22 mg/dL High 4-19 [facility] Sodium levelOrdered By: Nhan Yang on 12-29-2024 Sodium [Moles/Vol] 141 mmol/L 133-145 [facility] White blood cell (WBC) count Ordered By: Nhan Yang on 12-29-2024 WBC (Bld) [#/Vol] 6.1 10*3/uL 4.4-11.0 [facility] Office Visit Reporton 2024 Office Visit Report [facility] [address] [place] [address] OFFICE VISIT Date of Service: 04/26/24 MR#: [id number] Acct: [id number] Patient: CARMEN MENDOZA Rep #: [id number] : 1955 Provider: VALENTINA frankel Age/Sex: 69/M Location: [facility] [place] Status: Signed Employer Purchased Covid Test Note: Patient here today for Covid Testing, requested by their Employer. [facility] Billing Sheet Covid Covid Swab-Rapid: Yes 10/29/24 0631 Date Dread MONTGOMERY Cosigner Signature: Date (if applicable) CC: Normal [facility] Cardiology Visit Reporton Cardiology Visit Report [facility] [address] [place] [address] OFFICE VISIT Date of Service: 09/03/24 MR#: [id number] Acct: [id number] Name: CARMEN MENDOZA Rep #: [id number] : 1955 Provider: Dr. Kyle castro MD Age/Sex: 69/M Location: [facility] [place] Status: Signed HPI HPI History of Present Illness Details: Patient is a very pleasant 69-year-old white male that works in [employer] here that is here for monitoring of his cardiovascular status. Patient carries a history of coronary disease status postcoronary bypass graft surgery at [facility] in 2017. He received a BEASLEY to the LAD KALA to the right coronary artery of vein graft to the first diagonal branch and a free radial graft off of the vein graft to the diagonal to the OM branch of the circumflex. His right radial artery was harvested. He is left-handed. The patient reports that at times he has had these weird feelings when he is walking fast up an incline. It is not necessarily predictable is not always reproducible and it is definitely different than the symptoms he had cut in grass when he became profoundly short of breath about senior care through cutting the grass and could not continue. He subsequently was diagnosed with severe coronary disease and underwent catheterization at [facility]. The patient has had no recurrence of that anginal experience. He does occasionally have palpitations that occur once or twice a year they are not associated with dizziness lightheadedness syncope or near syncope. Patient's LV function is noted to be normal he had an echocardiogram done April 2022 EF was 60% he had trivial MR trivial TR 1+ PI and no evidence of diastolic dysfunction. Carotid ultrasound in April 2022 showed less than 50% bilaterally. And he had a stress test in April 2022 where he went greater than 85% of his age-predicted heart rate no ECG change he had a rare PVC during exercise and the nuclear scan was negative for any ischemia. Patient's blood pressure was elevated in the office today at 153/91 he reports is usually 130/78 in his home environment. The patient denies any PND orthopnea denies any lower extremity edema of any significance. He denies any recurrence of his anginal symptom. Intake Vital Signs 01/07/24 10:56 09/03/24 15:25 Height 6 ft 3 in 6 ft 3 in Weight: 222 lb BMI 27.7 BP 153/91 H Blood Pressure Location Lt brachial Position Sitting Respiration 16 Pulse 63 Pulse Source NIBP Intake Visit Reasons: 1 Y FU Telemarketer Supervisor Required: No Is patient in pain?: No Allergies No Known Allergies Allergy (Verified 09/03/24 15:29) Medications ???Medication ???Instructions ???Recorded ???Confirmed ???Type aspirin 81 mg tablet,delayed 81 mg PO QDAY 05/01/17 09/03/24 Hi story release amlodipine 5 mg tablet 5 mg PO DAILY awaiting mail order 03/26/24 09/03/24 Rx RX #90 tabs atorvastatin 80 mg tablet 80 mg PO QHS #90 tabs 06/29/2408/23 Rx metoprolol tartrate 25 mg tablet 25 mg PO BID #180 tabs 06/29/24 Rx multivitamin 1 tab PO QAM 09/03/24 09/03/24 His tory Ejection fraction %: 60 Have you fallen in the past year?: No PFSH Medical History Essential hypertension Atherosclerotic heart disease of [place] coronary artery without angina pectoris Chest pain Angina pectoris Abnormal stress test Cholecystitis, acute HTN (hypertension) HLD (hyperlipidemia) CAD (coronary artery disease) Acute cholecystitis Surgical History History of cholecystectomy History of tonsillectomy Aortocoronary bypass status ( 09/18/16) S/P CABG (coronary artery bypass graft) Family History Father Hypertension Mother Hypertension Diabetes COPD (chronic obstructive pulmonary disease) Brother CAD (coronary artery disease) Stents Hypertension Hyperlipemia Sister Hypertension Hyperlipemia Social History Smoking Status: Never smoker alcohol intake: current details: occasional substance use type: does not use caffeine: Yes Type: coffee Number of servings: 2 ROS Const Const: Positive for fatigue (Over last couple of months); Negative for weakness Eyes Eyes: Negative for change in vision ENT ENT: Positive for dizziness ( a couple episodes per year. ); Negative for balance problems Cardio Chest Pain: Yes (Not pain or SOB. just a weird feeling.) Frequency: other (Related to activity) Character: other (Pressure or weird feeling) Onset: other (Occasionally when walking up hill) Location: mid sternal Duration: minutes Relieving: rest Palpitations: Yes (Infrequently (more content not included)... Normal [facility] Bilirubin directOrdered By: Dread Quintanilla on 09-01-2024 Bilirubin.direct [Mass/Vol] 0.19 mg/dL 0.00-0.30 [facility] Bilirubin, totalOrdered By: Dread Quintanilla on 09-01-2024 Bilirubin [Mass/Vol] 0.40 mg/dL 0.00-1.30 [facility] Calculated very low density lipoprotein (VLDL) cholesterol measurementOrdered By: Dread Quintanilla on 09-01-2024 Calculated very low density lipoprotein (VLDL) cholesterol measurement 23 mg/dL 5-40 [facility] LDL calc ser/plasOrdered By: Dread Quintanilla on 09-01-2024 Cholesterol in LDL [Mass/Vol] 78 mg/dL [facility] Comment on above: Crvtkhocls=660-107 m g/dL & Higher Ziar=415 mg/dL or greater Laboratory - Chemistry and C hemistry - challengeOrdered By: Dread Quintanilla on 09-01-2024 AST [Catalytic activity/Vol] 28 U/L <38 [facility] Lipid Profileon 09-01-2024 CHOL:HDL 3.54 Normal [facility] Comment on above: Performed By: #### L 500.4940, L500.5910 #### [facility] [address] [place], [address] Cholesterol [Mass/Vol] 140 mg/dL Normal <=200 [facility] Comment on above: Result Comment: Chol esterol level, Desirable <200 mg/dL Borderline high cholesterol 200-239 mg/dL High cholesterol >=240 mg/dL Recommendations of the NCEP Adult Treatment Panel for the following risk-cutoff thresholds for the [place] population. Performed By: #### L 500.3400, L500.4100 #### [facility] [address] [place], [address] Cholesterol in HDL [Mass/Vol] 40 mg/dL Normal [facility] Comment on above: Result Comment: Akssandra onal Cholesterol Education Program (NCEP) guidelines: <40 mg/dL: Low HDL-cholesterol (major risk factor for CHD) >= 60 mg/dL: High HDL-cholesterol (negative risk factor for CHD) HDL-cholesterol is affected by a number of factors, e.g. smoking, exercise, hormones, sex and age. Performed By: #### L 500.3400, L500.4100 #### [facility] [address] [place], [address] Cholesterol in LDL [Mass/Vol] 78 mg/dL Normal [facility] Comment on above: Result Comment: Bord oqxdjo=800-974 mg/dL Higher Zexc=467 mg/dL or greater Performed By: #### L 500.3400, L500.4100 #### [facility] [address] [place], [address] Cholesterol in VLDL [Mass/Vol] 23 mg/dL Normal 5-40 [facility] Comment on above: Performed By: #### L 500.3400, L500.4100 #### [facility] [address] [place], [address] Triglyceride [Mass/Vol] 113 mg/dL Normal [facility] Comment on above: Result Comment: The drugs N-Acetylcysteine and Metamizole may falsely depress this assay. Normal range: <150 mg/dL Borderline High: 150-199 mg/dL High: 200-499 mg/dL Very High: >500 mg/dL Performed By: #### L 500.3400, L500.4100 #### [facility] [address] [place], [address] Liver Profileon 09-01-2024 Albumin [Mass/Vol] 4.2 g/dL Normal 3.4-4.8 [facility] Comment on above: Performed By: #### L 500.3400, L500.4100 #### [facility] [address] [place], [address] ALK PHOS 92 U/L Normal 40-129 [facility] Comment on above: Performed By: #### L 500.3400, L500.4100 #### [facility] [address] [place], [address] ALT [Catalytic activity/Vol] 32 U/L Normal <=46 [facility] Comment on above: Performed By: #### L 500.3400, L500.4100 #### [facility] [address] [place], [address] AST [Catalytic activity/Vol] 28 U/L Normal <=37 [facility] Comment on above: Performed By: #### L 500.3400, L500.4100 #### [facility] [address] [place], [address] Bilirubin [Mass/Vol] 0.40 mg/dL Normal 0.00-1.30 [facility] Comment on above: Performed By: #### L 500.3400, L500.4100 #### [facility] [address] [place], [address] Bilirubin.direct [Mass/Vol] 0.19 mg/dL Normal 0.00-0.30 [facility] Comment on above: Performed By: #### L 500.3400, L500.4100 #### [facility] [address] [place], [address] Globulin (S) [Mass/Vol] 2.3 g/dL Normal 2.2-4.2 [facility] Comment on above: Performed By: #### L 500.3400, L500.4100 #### [facility] [address] [place], [place], [address] T PROT 6.5 g/dL Normal 5.9-8.4 [facility] Comment on above: Performed By: #### L 500.3400, L500.4100 #### [facility] [address] [place], [place], [address] Screening total cholesterol/ high density lipoprotein (HDL) cholesterol ratioOrdered By: Dread Quintanilla on 09-01-2024 Cholesterol.total/Katlin sterol in HDL [Mass ratio] 3.54 {ratio} [facility] Serum globulin measurementOr dered By: Dread Quintanilla on 09-01-2024 Globulin (S) [Mass/Vol] 2.3 g/dL 2.2-4.2 [facility] Serum or plasma alanine mayes otransferase (ALT) measurementOrdered By: Dread Quintanilla on 09-01-2024 ALT [Catalytic activity/Vol] 32 U/L <47 [facility] Serum or plasma albumin sasha urement (mass/volume)Ordered By: Dread Quintanilla on 09-01-2024 Albumin [Mass/Vol] 4.2 g/dL 3.4-4.8 [facility] Serum or plasma alkaline kitty sphatase measurementOrdered By: Dread Quintanilla on 09-01-2024 ALP [Catalytic activity/Vol] 92 U/L 40-129 [facility] Serum or plasma cholesterol in HDL measurement (mass/volume)Ordered By: Dread Quintanilla on 09-01-2024 Cholesterol in HDL [Mass/Vol] 40 mg/dL >40 [facility] Comment on above: National Cholesterol Education Program (NCEP) guidelines:<40 mg/dL: Low HDL-cholesterol (major risk factor for CHD)>= 60 mg/dL: High HDL-cholesterol (negative risk factor for CHD)HDL-cholesterol is affected by a number of factors, e.g. smoking, exercise, hormones, sex and age. Serum or plasma cholesterol measurement (mass/volume)Ordered By: Dread Quintanilla on 09-01-2024 Cholesterol [Mass/Vol] 140 mg/dL <201 [facility] Comment on above: Cholesterol level, D esirable <200 mg/dLBorderline high cholesterol 200-239 mg/dLHigh cholesterol >=240 mg/dLRecommendations of the NCEP Adult Treatment Panel for the following risk-cutoff thresholds for the [place] population. Total proteinOrdered By: Randall Quintanilla on 09-01-2024 Protein [Mass/Vol] 6.5 g/dL 5.9-8.4 [facility] Triglycerides measurementOrd ered By: Dread Quintanilla on 09-01-2024 Triglyceride [Mass/Vol] 113 mg/dL <199 [facility] Comment on above: The drugs N-Acetylcy steine and Metamizole may falsely depress this assay. Normal range: <150 mg/dLBorderline High: 150-199 mg/dLHigh: 200-499 mg/dLVery High: >500 mg/dL Office Visit Reporton 2024 Office Visit Report [facility] [address] [place] [address] OFFICE VISIT Date of Service: 04/26/24 MR#: [id number] Acct: [id number] Patient: CARMEN MENDOZA Rep #: [id number] : 1955 Provider: VALENTINA frankel Age/Sex: 69/M Location: [facility] [place] Status: Signed Employer Purchased Covid Test Note: Patient here today for Covid Testing, requested by their Employer. Assessment and Plan Assessment and Plan Orders: Orders POC Cepheid Covid, FluAB, RSV Today Medications: New azithromycin (Zithromax Z-Nixon) For 250 mg dose pack: take 500 mg today (day 1), then 250 mg for 4 days (days 2-5) PO 6 tabs 0RF oseltamivir (Tamiflu) 75 mg PO Q12H 10 caps 0RF 5 days 04/26/24 0944 Date Dread Clintonignkathy Signature: Date (if applicable) CC: Normal [facility] Urgent Care Visit Reporton 0 04-26-2024 Urgent Care Visit Report [facility] [address] [place] [address] OFFICE VISIT Date of Service: 04/26/24 MR#: [id number] Acct: [id number] Name: CARMEN MENDOZA Rep #: [id number] : 1955 Provider: VALENTINA frankel Age/Sex: 69/M Location: [facility] [place] Status: Signed Intake Vital Signs 01/07/24 10:56 04/26/24 08:31 Height 6 ft 3 in BP 146/82 H 136/78 H Blood Pressure Location Rt brachial Position Sitting Respiration 16 16 Pulse 73 63 Pulse Source NIBP Temp 98.6 F 98.8 F Temp Source Oral Pulse Oximetry (%) 97 96 Oxygen Delivery Method room air Intake Visit Reasons: COUGH, CONGESTION Chief Complaint: cough, congest, GARAY, drainage Telemarketer Supervisor Required: No Is patient in pain?: No Allergies No Known Allergies Allergy (Verified 04/26/24 08:31) Medications ???Medication ???Instructions ???Recorded ???Confirmed ???Type multivitamin with iron 1 ea PO DAILY 01/06/17 01/07/24 History aspirin 81 mg tablet,delayed 81 mg PO QDAY 05/01/17 01/07/24 History release atorvastatin 80 mg tablet 80 mg PO QHS #90 tabs 12/23/23 01/07/24 Rx metoprolol tartrate 25 mg tablet 25 mg PO BID #180 tabs 12/23/23 01/07/24 Rx amlodipine 5 mg tablet 5 mg PO DAILY awaiting mail order 03/26/24 Rx RX #90 tabs azithromycin 250 mg tablet See Rx Instructions PO .COMPLEX #6 04/26/24 04/26/24 Rx (Zithromax Z-Nixon) tabs oseltamivir 75 mg capsule (Tamiflu) 75 mg PO Q12H 5 days #10 caps 04/26/24 04/26/24 Rx Have you fallen in the past year?: No Nurse's Note: cough, congest, GARAY, drainage x 48 hours. exposed to illness at work but unsure of dx. denies fever, [facility] Medical History (Updated 04/26/24 @ 08:58 by Dread Quintanilla [employer], [employer]-C) Essential hypertension Atherosclerotic heart disease of [place] coronary artery without angina pectoris Chest pain Angina pectoris Abnormal stress test Cholecystitis, acute HTN (hypertension) HLD (hyperlipidemia) CAD (coronary artery disease) Acute cholecystitis Surgical History History of cholecystectomy History of tonsillectomy Aortocoronary bypass status ( 09/18/16) S/P CABG (coronary artery bypass graft) Family History Father Hypertension Mother Hypertension Diabetes COPD (chronic obstructive pulmonary disease) Brother CAD (coronary artery disease) Stents Hypertension Hyperlipemia Sister Hypertension Hyperlipemia Social History Smoking Status: Never smoker alcohol intake: current details: occasional substance use type: does not use HPI HPI Chief Complaint: cough, congest, GARAY, drainage Details: CARMEN MENDOZA, is a 69 M who presents to the office today for concerns for cough and congestion. This has been ongoing for 48 hours. He notes right ear. The cough is worse when lying down. He notes sick contacts with similar symptoms. He is doing OTC with some relieve that wears off quickly. ROS Const Constitutional: Positive for fever(s) (98 without Tylenol) and abnormal sleep pattern (cough); No body ache, chills, fatigue, headache(s), sleep problems or change in appetite Eyes Eyes: No blurry vision, change in vision, double vision, irritation, discharge, vision loss, dry eyes, bulging eyes, floaters, visual disturbances, eye pain, Light sensitivity, spots in vision, tunnel vision or other ENT ENT: Positive for ear or mastoid pain, nasal congestion, sinus pressure and post nasal drip; No abnormal hearing, ear discharge, ear pressure, hearing loss, tinnitus, dizziness/vertigo, balance problems, nosebleed/epistaxi s, nose pain, sinus pain, nasal discharge, headache(s), facial pain, dental pain, difficulty swallowing, bad breath, hoarseness, lip swelling, mouth lesions, mouth pain, neck pain, sore throat, tongue swelling or throat swelling Resp Respiratory: Positive for cough Cough: Yes non-productive and wheezing (yesterday); No change in phlegm color, chest congestion, hemoptysis, pain on inspiration, shortness of breath, pain with cough or stridor Cardio Cardiology: No chest pain at rest, chest pain with exertion, shortness of breath, dyspnea on exertion or lightheadedness Gastro GI: No abdominal pain, change in bowel habits, constipation, diarrhea, difficulty swallowing, nausea/dyspepsia or vomiting Genitourinary Male: No burning urination or urinary frequency Musc Musculoskeletal: No joint pain or neck pain Skin Skin: No rash Neuro Neurology: No abnormal hearing, headache(s) or visual disturbances Psych Psychiatric: Positive for abnormal sleep pattern (cough) and No change in appetite Endo Endocrine: No fatigue Aller/Imm Allergy/Immunologi c: Positive for wheezing (yesterday); N (more content not included)... Normal [facility] Absolute lymphocyte countOrd ered By: Nhan Celia on 06-18-2023 Lymphocytes Auto (Unsp spec) [#/Vol] 1.98 10*3/uL 0.83-4.51 [facility] Automated lymphocyte count a s percentage of total leukocytesOrdered By: Nhan Celia on 06-18-2023 Lymphocytes/100 WBC Auto (Unsp spec) 34.3 % 19-41 [facility] Basophil percentageOrdered B y: Nhan ConstantinoCelia on 06-18-2023 Basophils/100 WBC (Bld) 0.9 % 0-1 [facility] Chloride [Moles/Vol] 111 mmol/L 98-107 [facility] Eosinophils/100 WBC (Bld) 2.9 % 0-5 [facility] Glucose [Mass/Vol] 90 mg/dL 74-106 [facility] Hemoglobin (Bld) [Mass/Vol] 14.4 g/dL 13.0-16.5 [facility] Monocytes/100 WBC (Bld) 9.9 % 0-10 [facility] Neutrophils (Bld) [#/Vol] 3.0 10*3/uL 2.0-7.7 [facility] Neutrophils/100 WBC (Bld) 51.8 % 47-70 [facility] Potassium [Moles/Vol] 4.0 mmol/L 3.5-5.1 [facility] Sodium [Moles/Vol] 142 mmol/L 136-145 [facility] Testosterone [Mass/Vol] 472.83 ng/dL [facility] Comment on above: CENTRAL 90% REFERENC E RANGES MALE AGE <50 197.44 - 669.58 ng/dL MALE AGE > or = 50 187.72 - 684.19 ng/dL FEMALE AGE <50 8.38 - 35.01 ng/dL FEMALE AGE > or = 50 <7.00 - 35.92 ng/dL Effective as of 10/25/20 WBC (Bld) [#/Vol] 5.8 10*3/uL 4.4-11.0 [facility] Determination of erythrocyte mean corpuscular volume (MCV)Ordered By: Nhan Yang on 06-18-2023 MCV (RBC) [Entitic vol] 91.5 fL 80-94 [facility] Erythrocyte distribution wid th ratioOrdered By: Nhan Yang on 06-18-2023 Erythrocyte distribution width (RBC) [Ratio] 12.5 % 11.6-14.6 [facility] Erythrocyte distribution wid th standard deviationOrdered By: Nhan Yang on 06-18-2023 Erythrocyte distribution width (RBC) [Entitic vol] 42.1 fL 35.1-43.9 [facility] Hematocrit Auto (Bld) [Volum e fraction]Ordered By: Nhan Yang on 06-18-2023 Hematocrit (Bld) [Volume fraction] 43.0 % 40-54 [facility] Immature granulocytes/100 WB C Auto (Bld)Ordered By: Nhan Yang on 06-18-2023 Immature granulocytes/100 WBC (Bld) 0.200 % 0.0-0.9 [facility] Comment on above: IG% - Immature Granu locytes (promyelocytes, myelocytes and metamyelocytes) > 1% indicates that a LEFT SHIFT is Present. Laboratory - Chemistry and C hemistry - challengeOrdered By: Nhan Yang on 06-18-2023 CO2 [Moles/Vol] 26.0 mmol/L 21.0-32.0 [facility] Urea nitrogen/Creatinine [Mass ratio] 16.7 mg/mg 10-20 [facility] Laboratory - Hematology and Cell countsOrdered By: Nhan Yang on 06-18-2023 MCH (RBC) [Entitic mass] 30.6 pg 27.0-32.0 [facility] MCHC (RBC) [Mass/Vol] 33.5 g/dL 32-36 [facility] Nucleated RBC/100 WBC (Bld) [Ratio] 0 % 0-5 [facility] Platelet mean volume (Bld) [Entitic vol] 9.5 fL 6.2-12.0 [facility] Platelets (Bld) [#/Vol] 259 10*3/uL 150-450 [facility] No Panel InformationOrdered By: Nhan Yang on 06-18-2023 Estimated GFR (MDRD) Amer 83 mL/min >60 [facility] Comment on above: GFR Calc Estimated GFR (MDRD) Non-Af Amer 68 mL/min >60 [facility] Comment on above: Non- GFR Calc Prostate Specific Antigen Screen 0.68 ng/mL 0.00-4.00 [facility] Comment on above: This test was perfor med using the TPSA assay method for the[employer] chemistry system. Values obtained with differentassay methods cannot be used interchangably.When changing PSA assays in the course of monitoring apatient, additional sequential testing should be carriedout to confirm baseline values. RBC Auto (Bld) [#/Vol]Ordere d By: Nhan Yang on 06-18-2023 RBC (Bld) [#/Vol] 4.70 10*6/uL 4.6-6.2 [facility] Serum or plasma calcium sasha urement (mass/volume)Ordered By: Nhan Yang on 06-18-2023 Calcium [Mass/Vol] 8.5 mg/dL 8.5-10.1 [facility] Serum or plasma creatinine m easurement (mass/volume)Ordered By: Nhan Yang on 06-18-2023 Creatinine [Mass/Vol] 1.14 mg/dL 0.70-1.30 [facility] Comment on above: The validity of the calculated GFR & GFRAA in patients over 70 years has not been determined. Clinical correlation is essential. Serum or plasma urea nitroge n measurement (mass/volume)Ordered By: Nhan Yang on 06-18-2023 Urea nitrogen [Mass/Vol] 19 mg/dL 7-18 [facility] Thin prep Papanicolaou smear with manual screeningOrdered By: Nhan Yang on 06-18-2023 Thin prep Papanicolaou smear with manual screening 5 5-15 [facility] No Panel InformationOrdered By: [facility] on 05-27-2023 Rubella IgG Antibody Reactive Nonreactive [facility] Comment on above: Antibody Results Int erpretation of Immune Status Non Reactive Presumed Non-Immune Equivocal Equivocal Reactive Presumed Immune Serum measles virus IgG anti body assay (units/volume)Ordered By: [facility] on 05-27-2023 MeV IgG Qn (S) > 300.0 AU/mL Immune >16.4 [facility] Comment on above: Negative <13.5 Equiv ocal 13.5 - 16.4 Positive >16.4Presence of antibodies to Rubeola is presumptive evidenceof immunity except when acute infection is suspected.Performed at: [facility] [address] [id number] Director: John Youngblood PhD, Phone: [phone] Serum mumps virus IgG antibo dy assay (units/volume)Ordered By: [facility] on 05-27-2023 MuV IgG Qn (S) 72.8 AU/mL Immune >10.9 [facility] Comment on above: Negative <9.0 Equivo mitchell 9.0 - 10.9 Positive >10.9A positive result generally indicates past exposure toMumps virus or previous vaccination. Basophil percentageOrdered B y: Dread Dwight on 10-13-2022 Bilirubin [Mass/Vol] 0.70 mg/dL 0.20-1.00 [facility] Comment on above: For patients on eltr ombopag therapy, use of [place] TBIL is not recommended. Cholesterol [Mass/Vol] 146 mg/dL <200 [facility] Comment on above: <200 mg/dL Desirable 200-240 mg/dL Borderline >240 mg/dL High Risk Protein [Mass/Vol] 6.7 g/dL 6.4-8.2 [facility] Triglyceride [Mass/Vol] 105 mg/dL <199 [facility] Comment on above: The drugs N-Acetylcy steine and Metamizole may falsely depress this assay.Serum Triglycerides Reference Interval Normal <150 mg/dL Borderline high 150 - 199 mg/dL High 200 - 499 mg/dL Very High > or = 500 mg/dL Direct bilirubinOrdered By: Dread Quintanilla on 10-13-2022 Bilirubin.direct [Mass/Vol] 0.19 mg/dL 0.00-0.30 [facility] Laboratory - Chemistry and C hemistry - challengeOrdered By: Dread Quintanilla on 10-13-2022 ALP [Catalytic activity/Vol] 80 U/L 45-117 [facility] ALT [Catalytic activity/Vol] 40 U/L 16-61 [facility] Globulin (S) [Mass/Vol] 3.1 g/dL 2.2-4.2 [facility] Serum or plasma albumin sasha urement (mass/volume)Ordered By: Dread Quintanilla on 10-13-2022 Albumin [Mass/Vol] 3.6 g/dL 3.2-5.0 [facility] Serum or plasma cholesterol in HDL measurement (mass/volume)Ordered By: Dread Quintanilla on 10-13-2022 Cholesterol in HDL [Mass/Vol] 44 mg/dL >40 [facility] Comment on above: The drugs N-Acetylcy steine and Metamizole may falsely depress this assay. Reference Range HDL <40 mg/dL Low HDL Cholesterol HDL >or= 60 mg/dL High HDL Cholesterol Serum or plasma cholesterol in VLDL measurement (mass/volume)Ordered By: Dread Quintanilla on 10-13-2022 Cholesterol in VLDL [Mass/Vol] 21 mg/dL 5-40 [facility] Serum or plasma low density lipoprotein (LDL) cholesterol measurement (mass/volume)Ordered By: Dread Quintanilla on 10-13-2022 Cholesterol in LDL [Mass/Vol] 81 mg/dL 0-130 [facility] Thin prep Papanicolaou smear with manual screeningOrdered By: Dread Quintanilla on 10-13-2022 Thin prep Papanicolaou smear with manual screening 24 U/L 15-37 [facility] Basophil percentageOrdered B y: Dr. Arellano on 04-16-2022 Bilirubin [Mass/Vol] 0.50 mg/dL 0.20-1.00 [facility] Comment on above: For patients on eltr ombopag therapy, use of [place] TBIL is not recommended. Cholesterol [Mass/Vol] 153 mg/dL <200 [facility] Comment on above: <200 mg/dL Desirable 200-240 mg/dL Borderline >240 mg/dL High Risk Protein [Mass/Vol] 7.1 g/dL 6.4-8.2 [facility] Triglyceride [Mass/Vol] 212 mg/dL <199 [facility] Comment on above: The drugs N-Acetylcy steine and Metamizole may falsely depress this assay.Serum Triglycerides Reference Interval Normal <150 mg/dL Borderline high 150 - 199 mg/dL High 200 - 499 mg/dL Very High > or = 500 mg/dL Direct bilirubinOrdered By: Dr. Arellano on 04-16-2022 Bilirubin.direct [Mass/Vol] 0.12 mg/dL 0.00-0.30 [facility] Laboratory - Chemistry and C hemistry - challengeOrdered By: Dr. Arellano on 04-16-2022 ALP [Catalytic activity/Vol] 92 U/L 45-117 [facility] ALT [Catalytic activity/Vol] 50 U/L 16-61 [facility] Globulin (S) [Mass/Vol] 3.4 g/dL 2.2-4.2 [facility] Serum or plasma albumin sasha urement (mass/volume)Ordered By: Dr. Arellano on 04-16-2022 Albumin [Mass/Vol] 3.7 g/dL 3.2-5.0 [facility] Serum or plasma cholesterol in HDL measurement (mass/volume)Ordered By: Dr. Arellano on 04-16-2022 Cholesterol in HDL [Mass/Vol] 44 mg/dL >40 [facility] Comment on above: The drugs N-Acetylcy steine and Metamizole may falsely depress this assay. Reference Range HDL <40 mg/dL Low HDL Cholesterol HDL >or= 60 mg/dL High HDL Cholesterol Serum or plasma cholesterol in VLDL measurement (mass/volume)Ordered By: Dr. Arellano on 04-16-2022 Cholesterol in VLDL [Mass/Vol] 42 mg/dL 5-40 [facility] Serum or plasma low density lipoprotein (LDL) cholesterol measurement (mass/volume)Ordered By: Dr. Arellano on 04-16-2022 Cholesterol in LDL [Mass/Vol] 67 mg/dL 0-130 [facility] Thin prep Papanicolaou smear with manual screeningOrdered By: Dr. Arellano on 04-16-2022 Thin prep Papanicolaou smear with manual screening 25 U/L 15-37 [facility] Office Visit: Follow up lap cholecystectomy 01/07/17on 01-22-2017 Dietary management education, guidance, and counseling (procedure) yes Invalid Interpretation Code [facility] [employer] Work Phone: Documentation of current medications (procedure) Done Invalid Interpretation Code [facility] [employer] Work Phone: Tobacco smoking status NHIS Never Invalid Interpretation Code [facility] [employer] Work Phone: Tobacco use [facility] Never smoker Invalid Interpretation Code [facility] [employer] Work Phone: Lab Report: Comprehensive Tn tabolic Profilon 01-08-2017 Alanine aminotransferase (ALT) 161 U/L High 12-78 [facility] [employer] ([employer]: [place]) Work Phone: Albumin 2.5 g/dL Low 3.4-5.0 [facility] [employer] Work Phone: Albumin/Globulin Ratio 0.8 {ratio} Low 0.9-2.4 [facility] [employer] Work Phone: Alkaline phosphatase (ALP) 151 U/L High 45-117 [facility] [employer] Work Phone: Anion gap 8 mmol/L Invalid Interpretation Code 5-15 [facility] [employer] Work Phone: Aspartate aminotransferase (AST) 68 U/L High 15-37 [facility] [employer] ([employer]: [place]) Work Phone: Bilirubin (total) 0.60 mg/dL Invalid Interpretation Code 0.20-1.00 [facility] [employer] Work Phone: BUN/Creatinine Ratio 11.5 RATIO Invalid Interpretation Code 10-20 [facility] [employer] Work Phone: Calcium 7.8 mg/dL Low 8.5-10.1 [facility] [employer] Work Phone: Chloride 107 mmol/L Invalid Interpretation Code 98-107 [facility] [employer] Work Phone: [phone] CO2 25.0 mmol/L Invalid Interpretation Code 21.0-32.0 [facility] [employer] Work Phone: Creatinine 0.96 mg/dL Invalid Interpretation Code 0.70-1.30 [facility] [employer] Work Phone: Creatinine 99.02 mL/min Invalid Interpretation Code [facility] [employer] Work Phone: eGFR (non-black) 85 mL/min/{1.73_m2} Invalid Interpretation Code >60 [facility] [employer] Work Phone: [phone] eGFR (non-black) 103 mL/min/{1.73_m2} Invalid Interpretation Code >60 [facility] [employer] Work Phone: [phone] Globulin 3.3 g/dL Invalid Interpretation Code 2.3-3.5 [facility] [employer] Work Phone: Glucose mass conc 97 mg/dL Invalid Interpretation Code 70-110 [facility] [employer] Work Phone: Potassium molar conc 3.8 mmol/L Invalid Interpretation Code 3.5-5.1 [facility] [employer] Work Phone: Protein 5.8 g/dL Low 6.4-8.2 [facility] [employer] Work Phone: Sodium 140 mmol/L Invalid Interpretation Code 136-145 [facility] [employer] Work Phone: Urea nitrogen 11 mg/dL Invalid Interpretation Code 7-18 [facility] [employer] Work Phone: Replaced Document: (P) CBC W /Diff, Automatedon 01-08-2017 Absolute Neut 8.6 X10 3/UL High 2.0-7.7 [facility] [employer] Work Phone: Basophils/100 WBC Auto (Bld) 0.3 % Invalid Interpretation Code 0-1 [facility] [employer] Work Phone: Eosinophils/100 leukocytes 0.9 % Invalid Interpretation Code 0-5 [facility] [employer] Work Phone: Erythrocyte distribution width Auto Ratio (RBC) 14.6 % Invalid Interpretation Code 11.6-14.6 [facility] [employer] Work Phone: Erythrocytes (RBC) 4.40 10*6/uL Low 4.6-6.2 [facility] Work Phone: Hematocrit (HCT) 38.7 % Low 40-54 [facility] Work Phone: Hemoglobin mass conc (Bld) 12.6 g/dL Low 13.0-16.5 [facility] Work Phone: Immature granulocytes/100 WBC (Bld) 0.200 % Invalid Interpretation Code 0.0-0.9 [facility] Work Phone: [phone] Lymphocytes 0.90 X10 3/UL Invalid Interpretation Code 0.83-4.51 [facility] Work Phone: Lymphocytes/100 leukocytes 8.5 % Low 19-41 [facility] Work Phone: [phone] MCH 28.6 pg Invalid Interpretation Code 27.0-32.0 [facility] Work Phone: MCHC mass conc (RBC) 32.6 G/GL Invalid Interpretation Code 32-36 [facility] Work Phone: [phone] MCV 88.0 fL Invalid Interpretation Code 80-94 [facility] Work Phone: Monocytes/100 leukocytes 9.3 % Invalid Interpretation Code 0-10 [facility] Work Phone: Neutrophils/100 WBC Auto (Bld) 80.8 % High 47-70 [facility] Work Phone: Platelets 228 10*3/mm3 Invalid Interpretation Code 150-450 [facility] Work Phone: PMV by Jack-Jose L 9.6 fL Invalid Interpretation Code 6.2-12.0 [facility] Work Phone: RDW SD 46.6 fL High 35.1-43.9 [facility] Work Phone: WBC (Leukocytes) 10.6 10*3/uL Invalid Interpretation Code 4.4-11.0 [facility] Work Phone: Lab Report: Magnesiumon 10-0 Magnesium 1.8 mg/dL Invalid Interpretation Code 1.8-2.4 [facility] [employer] Work Phone: Lab Report: Phosphoruson PHOS 2.5 mg/dL Invalid Interpretation Code 2.5-4.9 [facility] [employer] Work Phone: Replaced Document: (P) ABO R h Blood Type, Patienton 01-07-2017 BLOOD TYPE GEL Negative Normal [facility] Work Phone: Office Visit: [facility] 10-13-19 17 Fall risk assessment No Invalid Interpretation Code [facility] [employer] Work Phone: Replaced Document: Midmark E CG Observationson 10-12-2016 EKG QRS axis 33 deg Invalid Interpretation Code [facility] Work Phone: Interpretation Sinus Rhythm - Negative T-waves -Possible Anterior ischemia. ABNORMAL Invalid Interpretation Code [facility] [employer] Work Phone: P [place] 50 deg Invalid Interpretation Code [facility] [employer] Work Phone: [place] Interval 168 ms Invalid Interpretation Code [facility] [employer] Work Phone: Pulse (Heart Rate) 76 /min Invalid Interpretation Code [facility] [employer] Work Phone: QRS Duration 108 ms Invalid Interpretation Code [facility] [employer] Work Phone: QT Interval new path ms Invalid Interpretation Code [facility] Work Phone: T [place] -1 deg Invalid Interpretation Code [facility] [employer] Work Phone: Clinical Lists Update: 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 09-12-2016 Left ventricular Ejection fraction 60 % Invalid Interpretation Code [facility] [employer] Work Phone: Lab Report: Partial Thrombop last Timeon 08-31-2016 aPTT 26.5 s Invalid Interpretation Code 24.1-36.2 [facility] [employer] Work Phone: Lab Report: Prothrombin Time w/INRon 08-31-2016 INR Coag RelTime (PPP) 1.0 {INR} Invalid Interpretation Code [facility] [employer] Work Phone: Prothrombin time (PT) Coag time (PPP) 12.9 s Invalid Interpretation Code 11.7-14.9 [facility] [employer] Work Phone: Clinical Lists Update: 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 06-15-2016 Cholesterol 197 mg/dL Invalid Interpretation Code [facility] [employer] Work Phone: HDL Cholesterol 47 mg/dL Invalid Interpretation Code [facility] [employer] Work Phone: LDL Cholesterol 109 mg/dL Invalid Interpretation Code [facility] [employer] Work Phone: Triglyceride 203 mg/dL Invalid Interpretation Code [facility] [employer] Work Phone: Rx Refill: eRx Request for L ISINOPRIL 20 MG ORAL TABSon 09-16-2015 [facility]_RR [id number]`L ISINOPRIL 20 MG ORAL TABS```30 Tablet`30`One tablet by mouth daily``6`0` 015`08/18/2015`[facility] [place]*`[id number]``LIS INOPRIL 20 MG TABLET Quantity: 30 Tablet Instructions: take 1 tablet by mouth once daily Better [facility] [employer] Work Phone: Lab Report: Lipid Profileon 03-18-2015 very low density lipoproteins 22 mg/dL Invalid Interpretation Code 5-40 [facility] [employer] Work Phone: Lab Report: Microalb:Creat R atio,Random URon 03-18-2015 ACR (microalbumin/creatinin e) ratio 20.3 MG/G CRE Invalid Interpretation Code <30 mg/g CRE [facility] [employer] Work Phone: Urine, creatinine 135.00 mg/dL Invalid Interpretation Code NO RANGE EST. [facility] [employer] Work Phone: Urine, microalbumin 2.74 mg/dL Invalid Interpretation Code Units converted. See lab report for original value. [facility] [employer] Work Phone: Lab Report: CBC W/Diff, Auto matedon 06-07-2014 Absolute Neut 2.8 X10 3/UL Invalid Interpretation Code 2.0-7.7 [facility] [employer] Work Phone: Lymphocytes 2.01 X10 3/UL Invalid Interpretation Code 0.83-4.51 [facility] Work Phone: External Other: Preferred Me thod of Contacton 05-24-2014 [employer] phone Invalid Interpretation Code [facility] Work Phone: Vital Signs Date Time Vital Sign Value Performing Clinician Facility 09-03-2024 15:25-0400 Body height 190.[address] Nhan Yang DO Work Phone: [facility] 09-03-2024 15:25-0400 Body mass index (BMI) [Ratio] 27.7 kg/m2 Dr. Nhan Yagn DO Work Phone: [facility] 09-03-2024 15:25-0400 Body weight 100.[address] Nhan Yang DO Work Phone: [facility] 09-03-2024 15:25-0400 Diastolic blood pressure 91 mm[Hg] Dr. Nhan Yang DO Work Phone: [facility] 09-03-2024 15:25-0400 Heart rate 63 /min Dr. Nhan Yang DO Work Phone: [facility] 09-03-2024 15:25-0400 Respiratory rate 16 /min Dr. Nhan Yang DO Work Phone: [facility] 09-03-2024 15:25-0400 Systolic blood pressure 153 mm[Hg] Dr. Nhan Yang DO Work Phone: [facility] 09-27-2022 15:22-0400 Body height 190.[address] Nhan Yang Work Phone: [facility] 09-27-2022 15:22-0400 Body mass index (BMI) [Ratio] 26.9 kg/m2 Dr. Nhan Yang Work Phone: [facility] 09-27-2022 15:22-0400 Body weight 97.[address] Nhan Yang Work Phone: [facility] 09-27-2022 15:22-0400 Diastolic blood pressure 73 mm[Hg] Dr. Nhan Yang Work Phone: [facility] 09-27-2022 15:22-0400 Heart rate 80 /min Dr. Nhan Yang Work Phone: [facility] 09-27-2022 15:22-0400 Respiratory rate 18 /min Dr. Nhan Yang Work Phone: [facility] 09-27-2022 15:22-0400 SaO2% (BldA) [Mass fraction] 94 % Dr. Nhan Yang Work Phone: [facility] 09-27-2022 15:22-0400 Systolic blood pressure 127 mm[Hg] Dr. Nhan Yang Work Phone: [facility] 03-14-2022 15:37-0500 Body height 190.[address] Nhan Yang Work Phone: [facility] 03-14-2022 15:37-0500 Body mass index (BMI) [Ratio] 27.5 kg/m2 Dr. Nhan Yang Work Phone: [facility] 03-14-2022 15:37-0500 Body weight 99.[address] Nhan Yang Work Phone: [facility] 03-14-2022 15:37-0500 Diastolic blood pressure 78 mm[Hg] Dr. Nahn Yang Work Phone: [facility] 03-14-2022 15:37-0500 Heart rate 72 /min Dr. Nhan Yang Work Phone: [facility] 03-14-2022 15:37-0500 Respiratory rate 16 /min Dr. Nhan Yang Work Phone: [facility] 03-14-2022 15:37-0500 Systolic blood pressure 142 mm[Hg] Dr. Nhan Yang Work Phone: [facility] 10-12-2016 14:00-0400 BMI (Body Mass Index) 24.16 kg/m2 Rojas Burnette MD [facility] Work Phone: 10-12-2016 14:00-0400 Body Temperature 99.4 [degF] Rojas Burnette MD [facility] Work Phone: 10-12-2016 14:00-0400 BP Diastolic 70 mm[Hg] Rojas Burnette MD [facility] Work Phone: 10-12-2016 14:00-0400 BP Diastolic 72 mm[Hg] Rojas Burnette MD [facility] Work Phone: 10-12-2016 14:00-0400 BP Diastolic 80 mm[Hg] Rojas Burnette MD [facility] [employer] Work Phone: 10-12-2016 14:00-0400 BP Systolic 108 mm[Hg] Rojas Burnette MD [facility] Work Phone: 10-12-2016 14:00-0400 BP Systolic 100 mm[Hg] Rojas Burnette MD [facility] Work Phone: 10-12-2016 14:00-0400 BP Systolic 112 mm[Hg] Rojas Burnette MD [facility] Work Phone: 10-12-2016 14:00-0400 Height 190.5 cm Rojas Burnette MD [facility] Work Phone: 10-12-2016 14:00-0400 Pulse (Heart Rate) 76 /min Rojas Burnette MD [facility] Work Phone: 10-12-2016 14:00-0400 Pulse (Heart Rate) 78 /min Rojas Burnette MD [facility] Work Phone: 10-12-2016 14:00-0400 Respiratory Rate 18 /min Rojas Burnette MD [facility] Work Phone: 10-12-2016 14:00-0400 Weight 87.68 kg Rojas Burnette MD [facility] Work Phone: 03-21-2015 [id number] BSA (Body Surface Area) 2.24 m2 Rojas Burnette MD [facility] Work Phone: Encounters Encounter Date Encounter Type Care Provider Facility Start: 12-29-2024 End: 12-29-[address] Nhan Yang DO Work Phone: -Laboratory Start: 12-29-2024 End: 12-29-[address] Nhan Yang DO -Laboratory Work Phone: Start: 12-29-2024 End: 12-29-2024 ambulatory [facility] Facility:[facility] Start: 09-03-2024 End: 09-03-[address] Kyle Altamirano MD -[facility] Work Phone: Start: 09-03-2024 End: 09-03-[address] Nhan Yang DO Work Phone: [facility] Work Phone: Start: 09-01-2024 End: 09-01-[address] Nhan Yang DO Work Phone: [facility] Work Phone: Start: 09-01-2024 End: 09-01-2024 Patient encounter procedure Dread Quintanilla [facility] [employer] [facility] -Laboratory Work Phone: Start: 09-01-2024 End: 09-01-2024 ambulatory [facility] Facility:[facility] Start: 04-26-2024 End: 04-26-2024 ambulatory Dread Quintanilla [employer] [facility] Facility:[facility] Start: 06-18-2023 End: 06-18-2023 ambulatory [facility] Work Phone: Start: 06-18-2023 End: 06-18-2023 Patient encounter procedure [facility]Laboratory Work Phone: Start: 05-27-2023 [facility] Start: 05-27-2023 Registered [facility] Start: 10-13-2022 End: 10-13-[address] Nhan Yang Work Phone: [facility] Work Phone: Start: 10-13-2022 End: 10-13-[address] Nhan Yang Work Phone: [facility] Work Phone: Start: 09-27-2022 End: 09-27-[address] Nhan Yang Work Phone: [facility] Work Phone: Start: 04-16-2022 End: 04-16-[address] Nhan Yang Work Phone: [facility] Work Phone: Start: 04-16-2022 End: 04-16-[address] Nhan Yang Work Phone: [facility]-Laboratory Start: 04-10-2022 Non-patient / Non-visit Dr. Arslan Yang Work Phone: [facility] Start: 04-10-2022 End: 04-10-[address] [facility] Start: 03-14-2022 End: 03-14-[address] Nhan Yang Work Phone: [facility] Procedures Date Procedure Procedure Detail Performing Clinician Start: 12-29-2024 Prostate specific antigen measurement Dr. Nhan Yang DO Work Phone: Comment on above: This test was perfor med using the [employer] tPSA method. Measured values of a patient sample can vary depending on the testing procedure used. PSA values determined on patient samples by different testing procedures cannot be used interchangeably. If there is a change in PSA assays while monitoring therapy, sequential testing should be performed to confirm baseline values. Start: 04-10-2022 Radionuclide imaging of perfusion of myocardium under exercise stress Dr. Nhan Yang Work Phone: Start: 10-12-2016 End: 10-12-2016 Follow Up Appt 6 months Dread Quintanilla [employer] Work Phone: Start: 10-12-2016 End: 10-12-2016 PFM Dread Quintanilla [employer] Work Phone: Start: 08-31-2016 End: 09-03-2016 *BMP Eagle Arellano MD Start: 08-31-2016 End: 09-03-2016 aPTT in Platelet poor plasma by Coagulation assay Eagle Arellano MD Start: 08-31-2016 End: 09-03-2016 CBC W Auto Differential panel - Blood Eagle Arellano MD Start: 08-31-2016 End: 09-03-2016 Ecg routine ecg w/least 12 lds w/i&r Eagle Arellano MD Start: 08-31-2016 End: 09-03-2016 INR in Platelet poor plasma by Coagulation assay Eagle Arellano MD Start: 08-30-2016 History of coronary artery bypass grafting Aortocoronary bypass status Dr. Nhan Yang Work Phone: Comment on above: CABG x4 BEASLEY to LAD, KALA to RCA, SVG to 1st diag, and right radial artery graft from SVG to OM 09/18/16 Start: 02-07-2015 End: 03-18-2015 *CMP Complete Metabolic Panel Nhan Yang [employer] Work Phone: Start: 09-06-2014 End: 03-18-2015 *Microalbumin, Creatine Ratio, rand urine Nhan Yang [employer] Work Phone: Start: 09-06-2014 End: 03-18-2015 Lipid 1996 panel - Serum or Plasma Nhan Yang [employer] Work Phone: Start: 05-13-2014 End: 06-07-2014 *CBC with Differential Nhan Mirelesman Cyndi O Work Phone: Start: 05-13-2014 End: 06-07-2014 *CMP Complete Metabolic Panel Nhan Yang DO Work Phone: Start: 05-13-2014 End: 06-07-2014 *Microalbumin, Creatine Ratio, rand urine Nhan Yang DO Work Phone: Start: 05-13-2014 End: 06-07-2014 Lipid 1996 panel - Serum or Plasma Nhan Yang DO Work Phone: History of coronary artery bypass grafting S/P CABG (coronary artery bypass graft) Dr. Nhan Yang Work Phone: Plan of Treatment Date Care Activity Detail Author Start: 05-01-2017 End: 05-01-2017 Appointment Appointment [facility] [employer] Work Phone: Start: 01-22-2017 End: 01-22-2017 Follow-up visit Follow Up as needed [employer] Work Phone: Start: 10-12-2016 End: 10-12-2016 Cardiac Rehab Cardiac Re[facility] [address] [place], [address] [facility] [employer] Work Phone: Start: 10-12-2016 End: 10-12-2016 Cardiovascular stress test using treadmill Treadmill stress test (no imaging) [facility] [employer] Work Phone: Start: 10-12-2016 End: 10-12-2016 Ecg routine ecg w/least 12 lds w/i&r EKG (In office) [facility] [employer] Work Phone: Start: 10-12-2016 End: 10-12-2016 Follow Up Appt 6 months Follow Up Appt 6 months [facility] [employer] Work Phone: Start: 10-12-2016 End: 10-12-2016 PFM PFM [facility] [employer] Work Phone: Start: 08-31-2016 End: 09-03-2016 *BMP *BMP [facility] [employer] Work Phone: Start: 08-31-2016 End: 09-03-2016 aPTT *PTT-Partial Thromboplastin Time [facility] [employer] Work Phone: Start: 08-31-2016 End: 09-03-2016 CBC W Auto Differential panel - Blood *CBC without Diff [facility] [employer] Work Phone: Start: 08-31-2016 End: 08-31-2016 Chest x-ray X-Ray, Chest, PA & Lateral [facility] [employer] Work Phone: Start: 08-31-2016 End: 09-03-2016 Ecg routine ecg w/least 12 lds w/i&r EKG (In office) [facility] [employer] Work Phone: Start: 08-31-2016 End: 09-03-2016 Echocardiography Echocardiogram (complete) [facility] [employer] Work Phone: Start: 08-31-2016 End: 08-31-2016 Follow Up Appt 3 months Follow Up Appt 3 months [facility] [employer] Work Phone: Start: 08-31-2016 End: 09-03-2016 INR Coag RelTime (PPP) *PT/INR [facility] [employer] Work Phone: Start: 08-31-2016 End: 09-13-2016 Left Heart Cath Left Heart Cath [facility] [employer] Work Phone: Start: 08-31-2016 End: 08-31-2016 PFM PFM [facility] [employer] Work Phone: Start: 02-07-2015 End: 03-18-2015 *CMP Complete Metabolic Panel *CMP Complete Metabolic Panel [facility] [employer] Work Phone: Start: 09-06-2014 End: 03-18-2015 *Microalbumin, Creatine Ratio, rand urine *Microalbumin, Creatine Ratio, rand urine [facility] [employer] Work Phone: Start: 09-06-2014 End: 03-18-2015 Lipid panel [AGGREGATE] *Lipid Profile [facility] [employer] Work Phone: Start: 05-24-2014 End: 05-24-2014 Colonoscopy flx dx w/collj spec when pfrmd Colonoscopy [facility] [employer] Work Phone: Start: 05-13-2014 End: 06-07-2014 *CBC with Differential *CBC with Differential [facility] [employer] Work Phone: Start: 05-13-2014 End: 06-07-2014 *CMP Complete Metabolic Panel *CMP Complete Metabolic Panel [facility] [employer] Work Phone: Start: 05-13-2014 End: 06-07-2014 *Microalbumin, Creatine Ratio, rand urine *Microalbumin, Creatine Ratio, rand urine [facility] [employer] Work Phone: Start: 05-13-2014 End: 06-07-2014 Lipid panel [AGGREGATE] *Lipid Profile [facility] [employer] Work Phone: Start: 05-13-2014 End: 05-17-2014 Surgery Referral Surgery Referral [facility], [address] [place], [address] [facility] [employer] Work Phone: Immunizations Immunization Date Immunization Notes [facility] influenza, seasonal, injectable, preservative free Dr. Nhan Yang DO Work Phone: [facility] 12-27-2023 Covid (Spikevax) Dr. Nhan Flowers DO Work Phone: [facility] 02-12-2022 Covid Pfizer Bivalen t Booster [facility] 03-27-2021 Covid (Pfizer) [facility] 07-30-2020 Covid (Pfizer) [facility] 07-09-2020 Covid (Pfizer) [facility] 01-07-2017 influenza, injectabl e, quadrivalent, preservative free [facility] 01-07-2017 influenza, seasonal, injectable Dr. Nhan Yang Work Phone: [facility] Payers Date Payer Category Payer Self-pay [id number] 2024 Unknown [id number] 2012 Unknown [facility] [id number] Unknown [id number] [id number] Unknown [id number] [id number] Unknown [id number] [id number] [id number] Unknown [id number] [id number] Unknown [id number] Social History Date Type Detail Facility Start: 03-14-2022 End: 09-27-2022 Tobacco smoking status NHIS Unknown if ever smoked [facility] Start: 01-08-2017 None [facility] Start: 01-08-2017 Spouse/ Signif icant Other [facility] Start: 1955 Sex Assigned At Male [facility] Start: 09-03-2024 Tobacco smoking status NHIS Never smoked tobacco (finding) [facility] Sex Male [facility] Evaluation note 09-03-2024 Note Date & Type Note Facility 09-03-2024 Evaluation note Diagnosis Onset Date Resolution Atherosclerotic heart disease of [place] coronary artery without angina pectoris chronic September 03, 2024 3:23pm Essential hypertension chronic Ju 2024 3:23pm HLD (hyperlipidemia) chronic September 03, 2024 3:23pm [facility] Work Phone: Evaluation note Note Date & Type Note Facility Evaluation note Diagnosis Onset Date Carotid bruit acute Valvular heart disease acute Atherosclerotic heart diseas e of [place] coronary artery without angina pectoris chronic Essential hypertension chron ic HLD (hyperlipidemia) chronic Aortocoronary bypass status August, resolved [facility] Work Phone: Evaluation note Note Date & Type Note Facility Evaluation note Diagnosis Onset Date Atherosclerotic heart diseas e of [place] coronary artery without angina pectoris chronic Essential hypertension chron ic HLD (hyperlipidemia) chronic [facility] Work Phone: Evaluation note Note Date & Type Note Facility Evaluation note No assessment information availa ble [facility] Work Phone: Reason for referral (narrative) Note Date & Type Note Facility Reason for referral (narrative) No reason for referral information available [facility] Work Phone: Chief Complaint and Reason for Visit Chief Complaint 8 M FU CAD/ASHD CAD/ASHD E ORDERS Reason for Visit Carotid bruit Valvular heart disease Atherosclerotic heart disease of [place] coronary artery without angina pectoris Essential hypertension HLD (hyperlipidemia) Aortocoronary bypass status Chief Complaint 6 M FU E ORDER Reason for Visit Atherosclerotic hear t disease of [place] coronary artery without angina pectoris Essential hypertension HLD (hyperlipidemia) Chief Complaint NEW HIRE Chief Complaint Admit Date EORDERS September 01, 2024 8:59a m 3 Y FU September 03, 2024 3:23p m Reason for Visit Admit Date Atherosclerotic heart diseas e of [place] coronary artery without angina pectoris September 03, 2024 3:23pm Essential hypertension September 03, 2024 3: 23pm HLD (hyperlipidemia) September 03, 2024 3:23 pm Family History No Family History Records Found Relationship Condition Age at Onset Recorded Date/T [place] father Hypertension Unknown mother Hypertension Unknown Diabetes mellitus Unknown Chronic obstructive pulmonary disease Unk nown brother Coronary artery disease Unknown Hypertension Unknown Hyperlipidemia Unknown sister Hypertension Unknown Advance Directives No Advanced Directives Records Found Advance Directive Response Recorded Date/ Time Advance Directives No June 14 015 6:32am Living Will No January 06 6:30pm Power of Construction Job Titles No January 06 017 6:30pm Advance Directive Response Recorded Date/ Time Advance Directives No June 14 015 7:32am Living Will No January 06 7:30pm Power of Construction Job Titles No January 06 017 7:30pm Advance Directive Response Recorded Date/ Time Advance Directives No January 07, 2024 10:56am Summary Purpose Additional Source Comments Care Teams (unrecognized sec tion and content) Team Status: Active Member Role Status Dates Dr. Nhan Yang DO Primary Care Provider Active Team Status: Inactive Member Role Status Dates Dr. Nhan Yang DO Primary Care Provider Active Start: September 01, 2024 End: September 01, 2024 Dread Quintanilla [employer], [employer]-C Attending Provider Active S tart: September 01, 2024 End: September 01, 2024 Dread Quintanilla [employer], [employer]-C Referring Provider Active S tart: September 01, 2024 End: September 01, 2024 Team Status: Inactive Member Role Status Dates Dr. Nhan Yang DO Primary Care Provider Active Start: September 03, 2024 End: September 03, 2024 Dr. Nhan Yang DO Referring Provider Active Start: September 03, 2024 End: September 03, 2024 Dr. Kyle Altamirano MD Attending Provider Active Start: September 03, 2024 End: September 03, 2024 Team Status: Active Member Role Status Dates Dr. Nhan Yang DO Family Provider Active Dr. Nhan Yang DO Primary Care Provider Active Team Status: Inactive Member Role Status Dates Dr. Nhan Yang DO Referring Provider Active Dr. Eagle Arellano MD Attending Provider Active Team Status: Active Member Role Status Dates Lulú Kellogg [employer], [employer]-C Other Provider Active Dr. Nhan Yang DO Primary Care Provider Active Dr. Eagle Arellano MD Attending Provider Active Team Status: Active Member Role Status Dates Dr. Nhan Yang DO Primary Care Provider Active Dr. Vicente Yousif MD Attending Provider Active Team Status: Inactive Member Role Status Dates Lulú Kellogg [employer], [employer]-C Attending Provider Active Dr. Nhan Yang DO Primary Care Provider Active Team Status: Inactive Member Role Status Dates Dr. Nhan Yang DO Primary Care Provider Active Dr. Eagle Arellano MD Attending Provider, Referring Provider Active Team Status: Inactive Member Role Status Dates Dread Quintanilla [employer], [employer]-C Attending Provider Active Dr. Nhan Yang DO Primary Care Provider, Referrin g Provider Active Team Status: Inactive Member Role Status Dates Dr. Nhan Yang DO Primary Care Provider Active Dread Quintanilla [employer], [employer]-C Attending Provider Active Team Status: Active Member Role Status Dates Employee Health Attending Provider Active Team Status: Active Member Role Status Dates Dr. Nhan Yang DO Primary Care Provider Active Health Risk Assessment Attending Provider, Referring P leif Active Team Status: Inactive Member Role Status Dates Dr. Nhan Yang DO Primary Care Prov ider, Attending Provider, Referring Provider Active Team Status: Active Member Role Status Dates Dr. hNan Yang DO Primary Care Provider Active Start: September 01, 2024 Dread Quintanilla [employer], [employer]-C Attending Provider Active S tart: September 01, 2024 Dread Quintanilla [employer], [employer]-C Referring Provider Active S tart: September 01, 2024 Team Status: Active Member Role/Relationship Status Dates Dr. Nhan Yang DO Primary care physician Active Team Status: Inactive Member Role/Relationship Status Dates Dr. Nhan Yang DO Primary care physician Active Start: December 29, 2024 End: December 29, 2024 Dr. Nhan Yang DO Attending physician Active Start: December 29, 2024 End: December 29, 2024 Dr. Nhan Yang DO Referring Provider Active Start: December 29, 2024 End: December 29, 2024 Goals (unrecognized section and content) Goals may be documented in a n alternate sectionGoals may be documented in an alternate sectionGoals may be documented in an alternate sectionGoals may be documented in an alternate sectionGoals may be documented in an alternate sectionGoals may be documented in an alternate section (unrecognized sect ion and content) No Status Records Found INFORMATION SOURCE (unrecogn ized section and content) DATE CREATED AUTHOR 02/10/2025 [facility] FOR RECORDS PERTAINING TO PATIENTS WHO ARE OR HAVE BEEN ENROLLED IN A CHEMICAL DEPENDENCY/SUBSTANCEABUSE PROGRAM, SOME INFORMATION MAY BE OMITTED. This clinical summary was aggregated from multiple sources. Caution should be exercised in using it in the provision of clinical care. This summary normalizes information from multiple sources, and as a consequence, information in this document may materially change the coding, format and clinical context of patient data. In addition, data may be omitted in some cases. CLINICAL DECISIONS SHOULD BE BASED ON THE PRIMARY CLINICAL RECORDS. [employer] provides no warranty or guarantee of the accuracy or completeness of information in this document.
[2025-03-24 08:58] LABS: AST(SGOT) 27 U/L (<=37); Alanine Aminotransfer ALT/SGPT 34 U/L (<=46); Albumin, Serum 4.4 g/dL (3.4-4.8); Alkaline Phosphatase 93 U/L (40-129); Bilirubin, Direct 0.21 mg/dL (0.00-0.30); Cholesterol 178 mg/dL (<=200); Globulin 2.5 g/dL (2.2-4.2); Low Density Lipoprotein Calc. 104 mg/dL; Triglycerides 187 mg/dL; Very Low Density Lipoprotein 37 mg/dL (5-40); cholesterol:hdl ratio screen 4.25
== END | disposition home or self-care (01) ==
LOC: LAB 08:11
PROVIDERS: PCP Family Medicine; Referring Provider Nurse Practitioner Family; Visit Provider Nurse Practitioner Family
DX: E78.00 Pure hypercholesterolemia, unspecified (principal)
CPT/HCPCS: 36415; 80061; 80076